=== PATIENT | female | born 1950 | race Caucasian/White ===

== ENCOUNTER → 2023-12-23 11:03 | Outpatient (REF) | payer MEDICARE, SELFPAY ==
[2023-12-23 14:31] LABS: Calcium 9.7 mg/dl (8.4-10.2)
== END ==
LOC: PAVMRI 11:03
PROVIDERS: ATTENDING PHYSICIAN Psychiatry & Neurology Neurology; FAMILY PHYSICIAN Family Medicine
DX: G95.20 Unspecified cord compression (principal); M62.838 Other muscle spasm
CPT/HCPCS: 36415; 72141; 82310; 83735

== ENCOUNTER 2024-05-10 06:12 | Inpatient (IN) | payer MEDICARE, SELFPAY ==
[2024-05-10] VITALS (12 sets, daily range): BP systolic 111–158; BP diastolic 70–94; PULSE 17–120; O2SAT 89–92; BMI 20.3; BMI 19.8
[2024-05-10] MEDS: VENTOLIN NEBULES 7.5 MG INH (01:29)
[2024-05-10 01:43] LABS: % Basophils 0.3 % (0-2); % Eosinophils 1.4 % (0-6); % Immature Granulocytes 0.3 % (0-0.5); % Lymphocytes 23.6 % (20.5-51.1); % Monocytes 9.4 % (1.7-9.3); Absolute Eosinophils 0.1 10^3/uL (0-0.7); Absolute Lymphocytes 1.6 10^3/uL (1.2-3.4); Absolute Monocytes 0.6 10^3/uL (0.1-0.6); Absolute Neutrophils 4.3 10^3/uL (1.4-6.5); Hematocrit 37.4 % (37.0-47.0); Hemoglobin 12.6 g/dL (12.0-16.0); Mean Corp Hgb Conc. 33.7 g/dL (33.0-37.0); Mean Corpuscular Hgb 29.7 pg (27.0-31.0); Mean Corpuscular Volume 88.2 fL (81.0-99.0); Mean Platelet Volume 9.7 fL (7.4-10.4); Nucleated Red Blood Cells % 0 %; Platelet Count 221 10^3/uL (130-400); Red Blood Cell Count 4.24 10^6/uL (4.20-5.40); Red Cell Dist. Width 14.2 % (11.5-14.5); White Blood Cell Count 6.6 10^3/uL (4.8-10.8)
[2024-05-10 01:47] LABS: ALT (SGPT) 18 U/L (0-35); AST (SGOT) 26 U/L (14-36); Albumin 4.6 g/dl (3.5-5.0); Alkaline Phosphatase 86 U/L (38-126); Blood Urea Nitrogen 14 mg/dl (7-17); Calcium 10.1 mg/dl (8.4-10.2); Carbon Dioxide 27 mmol/L (22-30); Chloride 100 mmol/L (98-107); Estimated Creatinine Clearance 69 ml/min; Glucose 107 mg/dl (70-99); Potassium 4.2 mmol/L (3.5-5.1); Sodium 137 mmol/L (135-145); Total Bilirubin 0.7 mg/dl (0.2-1.3); Total Protein 7.1 g/dl (6.3-8.2); eGFR > 60.00
[2024-05-10 01:58] LABS: NT-proBNP 112 pg/ml; Troponin I < 0.012 ng/ml
--- NOTE | 2024-05-10 01:59 | ED.GENMED ---
History of Present Illness
General
Chief Complaint: Breathing Problem
Source: patient, ambulance crew and previous hospital records (Previous hospitalization August 2023. Admitted after suffering a fall, rib fracture, acute on chronic hypoxic respiratory failure.)
Exam Limitations: none
Time Seen by Provider: 05/10/24 01:23
Nursing documentation reviewed up to this point in time: agreed with
History of Present Illness
History of Present Illness:
This is a 73-year-old woman who has history of end-stage COPD, chronically O2 dependent at 4 L, resides at home independently. On palliative care.
She complains of increased shortness of breath over the past several days with a bit of confusion several days ago, she was unable to put her nebulizer tubing together and thus has not given herself nebulizers over the past several days with
resultant increased shortness of breath, increased weakness. She has been unable to make her self meals and has been concerned over the past few days.
She has not had a fever, chronic dry cough, chronic mild lower extremity edema.
She has not suffered any falls but admits to significant generalized weakness more so over the past few days.
She does have a echometer engineer who visits once a week to help with bathing and washing her hair. She canceled her echometer engineer today, Tuesday due to overall not feeling well.
She also has a sister who resides in [place] but admits to neglecting calling her for assistance. With worsening shortness of breath [facility]
Upon [facility] arrival patient found to be in significant respiratory distress, hypoxic with pulse ox of 84% initially. Given DuoNeb nebulizer en route with improvement in pulse ox to 98%.
Mild improvement in shortness of breath after nebulizer. Currently receiving hour-long albuterol nebulizer with significant improvement in shortness of breath, now able to speak in full sentences.
Past History
Past History
ED Past Medical History: COPD (Emphysema), Psychiatric (Anxiety) and Other (Migraines, recurrent UTIs, Subdural hematoma, Hiatal hernia, chronic pain syndrome-narcotic dependent)
ED Past Surgical History: (X 2), Orthopedic (Cervical laminectomy, Bilateral total hip replacements, Left wrist surgery) and Other (Cataracts, Bilateral cosmetic eye surgery)
Patient has exhibited threatening behavior?: No
PSI?: No
Social History
Tobacco: Former smoker (4 cigarettes/day)
Alcohol: None
Drug: None
Personal:
Living: alone
Employment: Not employed
Family History
Family History: Other (Noncontributory)
Phy Exam
Physical Exam
Physical Exam:
GENERAL: 73-year-old moderately frail appearing woman, appears older than stated age. Moderate resting tachypnea but able to speak in full sentences. Hour-long albuterol nebulizer infusing.
EYE: pupils equal and reactive. anicteric
NECK: Supple, nontender, no meningismus, no significant adenopathy.
ENT: posterior pharynx is clear, oral mucosa is mildly dry. TM clear b/l, nares patent.
CARDIAC: Regular rate and rhythm. no murmur.
LUNGS: Moderate resting tachypnea. Markedly decreased breath sounds throughout with expiratory wheezing/fine rales left mid to left upper lobe.
ABDOMEN: Soft, nondistended, without focal tenderness, no r/g, no cvat. normoactive BS.
NEUROLOGICAL: Alert and oriented x3, no focal neuro deficits. Motor strength is 5/5 bilaterally. Gross sensation is intact.
SKIN: Warm and dry, normal color, 1 cm superficial abrasion left anterior lower leg with mild erythema streaking distally from this abrasion anterior lower leg to the anterior ankle. Minimal local tenderness to palpation. No palpable heat.
MUSCULOSKELETAL: No clubbing nor cyanosis. Trace pitting edema right distal lower leg. Peripheral pulses are full and equal b/l. No palpable tenderness.
PSYCH: Normal and appropriate interaction.
Scores
Heart Failure Risk
Heart Failure Risk Score: Yes
History of Stroke or TIA: No
History of intubation for respiratory distress: No
Heart rate on ED arrival >/= 110: Yes
SaO2 <90% on arrival on room air: Yes
HR >/=110 during 3min walk test (or too ill to perform test): Yes
ECG has acute ischemic changes: No
Urea >/=12mmol/L (BUN 33.6mg/dL): No
Serum CO2>/=35mmol/L: No
Troponin I or T elevated to HI Level (0.4mg/dL): No
NT-proBNP >/=5,000ng/L (5,000pg/ml): No
HF Risk Score: 3
Admission Status: HIGH RISK 15.9% Consider SNF treatment or admission to hospital
Course
Orders/Labs/Results
Orders:
Orders
05/10/24 01:19
Electrocardiogram (*1) Urgent
Reason for Study: Other
Other Reason for Exam: Respiratory Distress
Cardiac Monitoring- Treatment ONCE
EKG- Treatment ONCE
IV Insert/Care/Rem.- Treatment PRN
CR Chest Portable - 1 View Urgent
Comment:
Reason For Exam: respiratory distress
Reason Study Needs to be Portable: Patient Unstable
O2 Therapy [RESP] Urgent
Titrate/Wean O2 to maintain O2 sat greater than (%): 93
Special Instructions: TO MAINTAIN CONTINUOUS O2 SATS >/= 93%
Pulse Ox/cont/shift [RESP] Urgent
Quantity: 1
Special Instructions: continuous pulse ox
05/10/24 01:21
Complete Blood Count/With Diff Urgent
Comprehensive Metabolic Panel Urgent
NT-proBNP Urgent
Troponin I Urgent
05/10/24 01:23
Albuterol Sulfate [Ventolin Nebules] 7.5 mg INH R NOW STA
05/10/24 02:54
0.9% Sodium Chloride 1000 ml [Nss] 1,000 ml IV 200 mls/hr
Dexamethasone Sod Phosphate [Decadron] 10 mg IV NOW STA
Abnormal Lab Results
05/10/24
01:21
Monocytes % 9.4 H %
(1.7-9.3)
Creatinine 0.5 L mg/dL
(0.6-1.0)
Glucose 107 H mg/dl
(70-99)
05/10/24 01:21
05/10/24 01:21
Vital Signs
Initial and Last Documented VS:
Initial Vital Signs
Temp Pulse Resp BP Pulse Ox
97.6 F 112 24 128/85 94
05/10/24 01:15 05/10/24 01:15 05/10/24 01:15 05/10/24 01:15 05/10/24 01:15
Last Documented Vital Signs
Temp Pulse Resp BP Pulse Ox
97.6 F 112 24 128/85 94
05/10/24 01:15 05/10/24 01:15 05/10/24 01:15 05/10/24 01:15 05/10/24 01:15
MDM/Problems Addressed
Differential Diagnosis Includes:
Concern for exacerbation COPD, pneumonia, less likely CHF.
With report of poor oral intake over the past 2 to 3 days, concern for acute dehydration, acute kidney injury, electrolyte abnormality.
With acute on chronic hypoxia, concern for coronary ischemia.
Dyspnea has improved with nebulizer treatments.
Chronic conditions affecting care: COPD, Neurological disorder and Immunosuppressed
Acute Exacerbation and/or Progression of Chronic Illness: COPD
*Radiology
Radiology exam reviewed: preliminary read by ED provider (Chest x-ray shows hyperinflation with moderate interstitial lung disease more prominent on the left than the right. Overall similar to previous film.)
*Pulse Oximetry
Patient hypoxic: yes
*EKG
Interpreted by ED Provider?: Yes
Interpretation: abnormal
Comparison EKG: no changes (Unchanged from previous August 2023)
Rate: tachycardiac
Rhythm: sinus
[place]: right axis deviation
Interval: normal interval
QRS Pattern: normal QRS
Ischemia: non-specific ST changes
*Importer Or Exporter Interpretation
Rate: tachycardiac
Interpretation: abnormal
Rhythm: sinus
*Critical Care Note
Total Time (30-74mins, 75-104mins- exclusive of procedures): Not Applicable
ED Attending Note
-
Portions of this chart may have been created with voice recognition software.� Occasional wrong word or��sound alike� substitutions may have occurred due to the inherent limitations of voice recognition software.
Discharge Plan
Departure
Patient Disposition: Admit
Date of Disposition: 05/10/24
Time of Disposition: 02:59
Admit to: Med/Surg
Admit to doctor: Mario
Presentation/result/management discussed w/ accepting MD/DO: Hospitalist
Condition: Fair
Discharge Problem:
Acute exacerbation of chronic obstructive pulmonary disease, Acute and chronic respiratory failure with hypoxia
Prescriptions:
No Action
bupropion HCl 150 MG tablet extended release 24 hr
150 mg PO DAILY
Rx Instructions:
take with 300mg
gabapentin 300 mg Capsule
300 mg PO DAILYPRN PRN (Reason: breakthrough pain)
omeprazole 40 mg capsule,delayed release(DR/EC)
40 mg PO DAILY
gabapentin 300 mg Capsule
1,200 mg PO QPM
bupropion HCl [Wellbutrin XL] 300 mg Tablet Extended Release 24 Hr
300 mg PO DAILY
Rx Instructions:
take with 150mg
Visbiome 112.5 billion cell Capsule
1 cap PO DAILY
budesonide 0.25 MG/2 ML suspension for nebulization
0.25 mg inhalation R BID
ipratropium-albuterol 0.5 mg-3 mg(2.5 mg base)/3 mL Solution For Nebulization
3 ml INHALATION R Q8HPRN PRN (Reason: sob)
azithromycin 250 mg Tablet
250 mg PO MOWEFR
Patient Comments:
08/31/23 filled on 05/16/23 #36
phenazopyridine 200 mg Tablet
200 mg PO TIDPRN PRN (Reason: uti)
diphenoxylate-atropine 2.5-0.025 mg Tablet
1 tab PO DAILYPRN PRN (Reason: diarrhea)
Patient Comments:
08/31/23 filled on 08/12/23 #90
methenamine hippurate 1 gram Tablet
1 g PO DAILYPRN PRN (Reason: uti)
ibuprofen [Advil] 200 mg Tablet
400 mg PO DAILYPRN PRN (Reason: mild pain)
memantine 10 mg Tablet
10 mg PO DAILY
lidocaine 4 % Adhesive Patch,Medicated
1 patch topical DAILY Qty: 10 0RF
ciprofloxacin HCl 250 mg Tablet
250 mg PO BID Qty: 8 0RF
Rx Instructions:
Take for another 4 days
tramadol 50 mg Tablet
25 mg PO Q6HPRN PRN (Reason: severe pain) Qty: 20 0RF
lorazepam [Ativan] 0.5 MG tablet
0.5 mg PO TIDPRN PRN (Reason: anxiety) 5 Days Qty: 15 0RF
Patient Comments:
08/31/23 filled on 08/08/23 #90
Interventions
Interventions:
*Risk Screen - Suicide Last Done: 05/10/24 01:15
*General Assessment Last Done: 05/10/24 01:15
*Neglect/Abuse Screening Last Done: 05/10/24 01:15
*ED COVID-19 Vaccine History Last Done: 05/10/24 01:15
Discharge Date and Time
Print Language: PASHTO
[2024-05-10] MEDS: NSS 1000 IV (03:16)
[2024-05-10] MEDS: DECADRON 10 MG IV (03:16)
[2024-05-10] MEDS: TYLENOL 650 MG PO ×2 (03:22→08:37)
--- NOTE | 2024-05-10 03:23 | EDRN ---
Patient complaining of a headache medicated for pain with tylenol per
--- NOTE | 2024-05-10 04:20 | EDRN ---
Dr. Martin at bedside working on admission
--- NOTE | 2024-05-10 04:40 | HPS.HSE ---
Family Physician
-
Family Physician: Yo Lugo
Chief Complaint
-
SOB
History of Present Illness
Patient is a 73y F with PMH significant for severe COPD on chronic home O2 who presents to ED complaining of SOB. Patient states that she has been progressively more short of breath over the past 4-5 days. Patient notes that she has been
sleeping poorly and has been very tired as a result. She stopped using her typical breathing treatments / nebulizers due to feeling too tired to do so. Her breathing gradually became worse and worse. Over the past 2 days, patient states that she
has experienced air hunger. She has home health aides; however, she advised them not to come in b/c she was feeling poorly. Her sister offered to come and see her but patient declined this as well.
This evening she was severely short of breath and decided to call for help.
EMS brought patient to the ED where she was noted to be in moderate respiratory distress with significantly decreased breath sounds.
She has improved somewhat s/p neb treatment and steroids here in the ED.
Patient is on Palliative Care at home (Dr. Meyer) and takes oxycodone as needed for air hunger. She has taken this a few times over the past few days with only minimal / temporary improvement.
Medical History
Past Medical History
Past Medical History: Reports Other
Additional Past Medical History:
COPD
Chronic Hypoxic Respiratory Insufficiency
Peripheral Neuropathy
Anxiety
GERD
Migraine Headache
Hx Recurrent UTIs
Past Surgical History: Reports Other
Additional Past Surgical History:
Posterior Cervical Laminectomy
Bilateral Total Hip Replacements
Left Wrist Surgery
Cataracts
Bilateral Eyelid Surgery
Social History
Tobacco: Former Smoker
Alcohol: Occasional
Living: Alone
Family History
Family History: Other (Father with COPD)
Allergies / Home Medications
Allergies reflects when Allergies were last updated in [facility].
Home Medications with original date entered in [facility]
Allergy/Medication List:
Patient cannot recall all current meds / doses. Will need formal reconciliation in the AM.
If medication reconciliation has not been performed, why?: Medication List N/A
Review of Systems
-
History Source: Patient
A 12 point ROS was completed and negative except as noted: Yes
Constitutional: Reports Fatigue; Denies Fever or Chills
EENT: Denies Sore Throat
Respiratory: Reports Trouble Breathing; Denies Cough or Hemoptysis
Cardiac: Denies Chest Pain, Diaphoresis, Palpitations or Syncope
Abdomen/GI: Denies Abdominal Pain, Nausea or Vomiting
: Denies Dysuria or Frequency
Musculoskeletal: Denies Joint Pain or Edema
Neurological: Reports Headache; Denies Dizzy
Psych: Reports Depression and Anxiety
Physical Exam
Vital Signs
Vital Signs
Temp Pulse Resp BP Pulse Ox
97.6 F 107 17 113/70 97
05/10/24 01:15 05/10/24 04:15 05/10/24 04:15 05/10/24 04:00 05/10/24 04:15
Physical Exam
General: Other (Frail 73y F in mild distress due to dyspnea.)
HEENT: Moist mucous membranes, PERRLA and Other (Neck supple.)
Respiratory: Other (Decreased breath sounds throughout with diffuse end-expiratory wheeze.)
Cardiac: S1/S2 and Tachycardia; No Murmur
GI: Soft, Non Tender, Non Distended and Normal Bowel Sounds
Musculoskeletal: No Clubbing, No Cyanosis and Other (Trace edema of the R ankle.)
Neuro: AO x 3
Laboratory Results
-
05/10/24 01:21
05/10/24 01:21
Laboratory Results
Total Bilirubin 0.7 mg/dl (0.2-1.3) 05/10/24 01:21
AST 26 U/L (14-36) 05/10/24 01:21
ALT 18 U/L (0-35) 05/10/24 01:21
Alkaline Phosphatase 86 U/L (38-126) 05/10/24 01:21
Troponin I < 0.012 ng/ml 05/10/24 01:21
Impression/Plan
-
A/P: Patient is a 73y F with PMH significant for COPD and chronic hypoxemia who presents to ED complaining of SOB.
COPD with Acute Exacerbation
Chronic Hypoxemic Respiratory Failure
- Admit for further evaluation and treatment.
- Exacerbation likely in part due to lack of medications for the past few days.
- IV steroids, nebs ATC and PRN.
- Follow for clinical improvement.
- Continue usual thrice weekly azithromycin.
- Consider Pulmonary evaluation if no improvement.
Peripheral Neuropathy
- Stable. Continue gabapentin (patient does recall name / dose of this medication).
Anxiety / Depression
- Reconcile home meds and resume if appropriate.
- Continue PRN BZDs for now.
Palliative Care
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
- Given issues over the past few days - ? if she would benefit from placement / assisted living / etc?
- Morphine as needed for pain / anxiety / air hunger.
DVT Prophylaxis: Lovenox
Code Status: DNR
[2024-05-10] MEDS: DUONEB 3 ML INH ×4 (07:42→20:08)
[2024-05-10] MEDS: PULMICORT 0.25 MG INH ×2 (07:42→20:08)
[2024-05-10] MEDS: MORPHINE SULFATE 2 MG IV ×2 (08:35→23:19)
[2024-05-10] MEDS: NAMENDA 10 MG PO (08:36)
[2024-05-10] MEDS: PROTONIX 40 MG PO (08:36)
[2024-05-10] MEDS: NEURONTIN 600 MG PO ×3 (08:36→22:20)
--- NOTE | 2024-05-10 09:10 | PTCARENOTE ---
Air hunger noted, resp rate 36 breaths/minute, accessory muscle use noted. SaO2 >91% on 4L. Medicated w/ PRN morphine. Plan of care ongoing.
--- NOTE | 2024-05-10 12:13 | W.PN.HOSP.TC ---
Today's Communication/Plan
-
Monitor vital signs and see plan
Continue with IV steroids, nebs
Pulmonary to see
Nonbillable note
Assessment / Plan
Assessment / Plan
General: Other (Frail 73y F in mild distress due to dyspnea.)
HEENT: Moist mucous membranes, PERRLA and Other (Neck supple.)
Respiratory: Other (Decreased breath sounds throughout with diffuse end-expiratory wheeze.)
Cardiac: S1/S2 and Tachycardia; No Murmur
GI: Soft, Non Tender, Non Distended and Normal Bowel Sounds
Musculoskeletal: No Clubbing, No Cyanosis and Other (Trace edema of the R ankle.)
Neuro: AO x 3
COPD with Acute Exacerbation
Chronic Hypoxemic Respiratory Failure on 4.5 L at home
- Exacerbation likely in part due to lack of medications for the past few days.
- IV steroids, nebs ATC and PRN.
- Follow for clinical improvement.
- Continue usual thrice weekly azithromycin.
Pulmonary evaluation
Peripheral Neuropathy
- Stable. Continue gabapentin (patient does recall name / dose of this medication).
Anxiety / Depression
- Reconcile home meds and resume if appropriate.
- Continue PRN BZDs for now.
Palliative Care
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
- Given issues over the past few days - ? if she would benefit from placement / assisted living / etc?
- Morphine as needed for pain / anxiety / air hunger.
DVT Prophylaxis: Lovenox
Code Status: DNR
Anticipated Discharge: 24 - 48 hours
Subjective/Interval History
-
Date of Service: May 10, 2024
denies pain
Objective Data
-
Labs:
Laboratory Results
05/10/24
01:21
WBC 6.6
Hgb 12.6
Hct 37.4
Plt Count 221
Sodium 137
Potassium 4.2
Chloride 100
Carbon Dioxide 27
BUN 14
Creatinine 0.5 L
Glucose 107 H
Calcium 10.1
Total Bilirubin 0.7
AST 26
ALT 18
Alkaline Phosphatase 86
Vital Signs:
Vital Signs
Temp Pulse Resp BP Pulse Ox
98.1 F 99 16 111/72 98
05/10/24 08:30 05/10/24 11:24 05/10/24 11:24 05/10/24 07:00 05/10/24 11:24
[2024-05-10] MEDS: DECADRON 4 MG IV ×2 (13:40→20:29)
[2024-05-10 14:05] LABS: Urine Albumin Negative (Neg - Trace); Urine Bilirubin Negative (Negative); Urine Character Clear (Clear); Urine Color Yellow; Urine Glucose Negative (Negative); Urine Ketone 2+ (Negative); Urine Leukocyte 1+ (Negative); Urine Nitrite Positive (Negative); Urine Occult Blood Negative (Negative); Urine Specific Gravity 1.015 (<1.030); Urine Urobilinogen Negative (Neg - 1+)
[2024-05-10 14:23] LABS: Urine Bacteria Many (Negative); Urine Red Blood Cell 0-2 /HPF (0-2)
--- NOTE | 2024-05-10 15:25 | PTCARENOTE ---
05/10- Patient transferred and oriented to unit without issue. AAOX3 but anxious. Patient is able to ambulate with walker with one-person assist to bathroom. Is continent of both bowel/bladder. Patient is 96% on 4L O2. Patient denies any current
needs.
[2024-05-10] MEDS: STERILE WATER FOR INJECTION 10 ML IV ×2 (15:35→22:20)
[2024-05-10] MEDS: MAXIPIME 1000 MG IV ×2 (15:35→22:20)
[2024-05-10] MEDS: LOVENOX 40 MG SC (15:58)
--- NOTE | 2024-05-10 16:10 | CON.PUL ---
Consultation
Consultation Request
Date/Time Consultation Requested: 05/10/2024
Date/Time Consultation Performed: 05/10/2024
Requesting Provider: Dr. Magaña
Performing Provider: Dr. Nikita Harris
Reason for Consultation: Acute exacerbation of COPD
Medical History
-
History of Present Illness:
73-year-old woman known to me from the office, has advanced COPD with chronic hypoxemic respiratory failure. She is a former smoker. Currently on 5 L of supplemental oxygen. Frequent exacerbator..
Debilitated, with history of anxiety as well.
Last time admitted to the hospital 09/08/2023.
Returns to the hospital on 05/10/2024With progressive short of breath over the past 4 to 5 days. Reports poor sleep quality the last several days. Feels very tired.
She was advised to come to the emergency room for evaluation. Shortness of breath was significant at rest what prompted her to come to the emergency room.
Steroids and nebulizer were started.
Patient is on palliative care with Dr. Meyer. Now on oxycodone for air hunger.
Past Medical History
Past Medical History: Other (See assessment and plan section)
Social History
Tobacco: Smoker (4 cigarettes/day)
Alcohol: Occasional
Drug: None
Personal: Single
Employment: Retired
Family History
Family History: Reviewed & Not Pertinent
Allergies / Home Medications
Allergies
Allergy/AdvReac Type Severity Reaction Status Date / Time
No Known Allergies Allergy Verified 05/10/24 01:21
Home Medications
�Medication �Instructions �Recorded �Confirmed �Last Taken �Type
bupropion HCl 150 mg 24 hr tablet, 450 mg PO DAILY Mental 09/14/21 05/10/24 08/30/23 History
extended release Health/Anxiety
omeprazole 40 mg capsule,delayed 40 mg PO DAILY Gastrointestinal 09/10/22 05/10/24 08/30/23 History
release issue
budesonide 0.25 mg/2 mL suspension 0.25 mg inhalation R DAILY 10/01/22 05/10/24 08/30/23 History
for nebulization Lung/breathing issues
azithromycin 250 mg tablet 250 mg PO MOWEFR Infection 08/31/23 05/10/24 08/29/23 History
diphenoxylate-atropine 2.5 1 tab PO DAILYPRN PRN diarrhea 08/31/23 05/10/24 08/31/23 History
mg-0.025 mg tablet
ipratropium 0.5 mg-albuterol 3 mg 3 ml inhalation R Q8HPRN PRN sob 08/31/23 05/10/24 08/30/23 History
(2.5 mg base)/3 mL nebulization
soln
methenamine hippurate 1 gram tablet 1 g PO DAILYPRN PRN uti 08/31/23 05/10/24 Unknown History
phenazopyridine 200 mg tablet 200 mg PO TIDPRN PRN uti 08/31/23 05/10/24 08/30/23 History
lorazepam 0.5 mg tablet (Ativan) 0.5 mg PO TIDPRN PRN anxiety 5 09/08/23 05/10/24 08/30/23 Rx
days #15 tabs
aripiprazole 5 mg tablet (Abilify) 5 mg PO DAILY Mental Health 05/10/24 05/10/24 Unknown History
jhdjebneuw-imweqirjukpji-moqsqzmy 1 cap PO Q6HPRN PRN mirgraines 05/10/24 05/10/24 Unknown History
50 mg-325 mg-40 mg capsule
gabapentin 300 mg capsule 300 mg PO BID Neurological 05/10/24 Unknown History
Condition
oxycodone 5 mg tablet 5 mg PO BIDPRN PRN sevre pain 05/10/24 05/10/24 Unknown History
Review of Systems
-
History Source: Patient
All other systems: Negative unless noted
Vitals / Labs / Diagnostic Testing
Vital Signs
Temp Pulse Resp BP Pulse Ox
98.8 F 101 20 129/79 93
05/10/24 15:15 05/10/24 15:52 05/10/24 15:52 05/10/24 15:15 05/10/24 15:52
Lab Data
05/10/24 01:21
05/10/24 01:21
Diagnostic Testing:
Physical Exam
-
HEENT: Normocephalic
Cardiovascular: S1/S2
Respiratory: Other (Prolonged expiratory phase)
GI: Soft and Non Distended
Neurology: Awake, Alert, Oriented and AO x 3
Skin: Warm and Other (Cachectic)
General: Respiratory Distress (At rest)
Assessment
-
73-year-old woman with advanced COPD, minimal effort dyspnea at baseline, anxiety, on maximal medical therapy, now on narcotics for air hunger and palliative care. Comes to the hospital 05/10/2024 with worsening shortness of breath over the last 4 to
5 days. Worsening in the last 24 hours with minimal effort. Unrelieved by nebulizers. We were consulted on 05/10/2024 for evaluation.
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
Last discharged from the hospital 09/2023. Not on palliative care
Hospital admission-acute exacerbation of COPD 07/2022.
COPD/emphysema, history of frequent exacerbations/chronic prednisone use
Follows with Dr Harris, last seen 02/03/22
On budesonide and DuoNebs
Chronic O2 use 3L
Last PFT 2018- FEV1 0.97L 41%, DLCO 7%-- no further tests are attempted as she cannot perform them
RUL spiculated nodule--discussed with patient/daughter, no further w/u as she would not be amenable for treatment
Hx of Falls
Chronic alcohol abuse
Polycythemia
Chronic gastritis/NSAID use
Kyphoscoliosis�
Idiopathic progressive polyneuropathy
Current moderate episode of major depressive disorder without prior episode
Diverticulosis
Chronic diarrhea with hypokalemia
Former smoker
Assessment and plan:
Patient well-known to me from the outpatient, advanced COPD with chronic shortness of breath despite maximal medical therapy.
Worsening symptoms over the last 4 to 5 days. 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
Her oxygenation is at baseline.
Poor air movement at baseline as well.
So far no evidence for infection.
Chest x-ray reviewed showed no acute infiltrates.
D-dimer and proBNP normal. Laboratory testing all normal.
-
Unfortunately, there are a few options for this patient. She has been on maximal medical therapy.
She is cachectic at baseline and deconditioned.
Has been on maximal medical therapy DuoNebs/Pulmicort/steroids added low-dose intermittently/chronic macrolide therapy.
For now I agree with IV corticosteroids
Restart nebulizers
No indication for antibiotics to treat infection. She is chronically on low-dose azithromycin, continue for now.
I agree with narcotics for dyspnea sensation. She is on Palliative care with Dr. Meyer.
She is SOB at rest with conversation.
Discussed with pt, will add morphine IV 0.5 IV PRN for dyspnea, she was agreeable to this.
-
In the past we have discussed noninvasive mechanical ventilation but she is not interested.
There is no evidence for metabolic alkalosis on BMP. Less likely chronic hypercapnia.
-
Suggest prolonged prednisone taper and assess whether this patient would benefit from that in the outpatient setting.
-
If there is no improvement, no acute reason for decompensation, additional goals of cares may need to be discussed.
Will be an ongoing discussion on a day by day basis.
-
Will follow
[2024-05-10] MEDS: ATIVAN 0.5 MG PO (23:58)
[2024-05-11 03:29] VITALS: BP 118/68
[2024-05-11] MEDS: DECADRON 4 MG IV ×3 (04:22→20:03)
[2024-05-11 07:00] VITALS: BP 100/63; BP 121/74; BP 123/81; PULSE 101; PULSE 104; PULSE 96
[2024-05-11] MEDS: ZITHROMAX 250 MG PO (07:26)
[2024-05-11] MEDS: NEURONTIN 600 MG PO ×3 (07:26→21:16)
[2024-05-11] MEDS: NAMENDA 10 MG PO (07:26)
[2024-05-11] MEDS: PROTONIX 40 MG PO (07:26)
[2024-05-11] MEDS: STERILE WATER FOR INJECTION 10 ML IV ×2 (07:27→20:04)
[2024-05-11] MEDS: MAXIPIME 1000 MG IV ×2 (07:27→20:04)
[2024-05-11] MEDS: DUONEB 3 ML INH ×4 (08:08→20:53)
[2024-05-11] MEDS: PULMICORT 0.25 MG INH ×2 (08:08→20:54)
[2024-05-11 08:42] LABS: % Immature Granulocytes 0.3 % (0-0.5); % Lymphocytes 6.8 % (20.5-51.1); % Neutrophils 88.9 % (42.2-75.2); Absolute Lymphocytes 0.4 10^3/uL (1.2-3.4); Absolute Monocytes 0.2 10^3/uL (0.1-0.6); Absolute Neutrophils 5.1 10^3/uL (1.4-6.5); Hemoglobin 11.6 g/dL (12.0-16.0); Mean Corp Hgb Conc. 34.1 g/dL (33.0-37.0); Mean Corpuscular Volume 90.9 fL (81.0-99.0); Mean Platelet Volume 9.9 fL (7.4-10.4); Nucleated Red Blood Cells % 0 %; Platelet Count 217 10^3/uL (130-400); Red Blood Cell Count 3.74 10^6/uL (4.20-5.40); Red Cell Dist. Width 14.3 % (11.5-14.5); White Blood Cell Count 5.7 10^3/uL (4.8-10.8)
[2024-05-11 08:58] LABS: Blood Urea Nitrogen 20 mg/dl (7-17); Carbon Dioxide 29 mmol/L (22-30); Chloride 101 mmol/L (98-107); Estimated Creatinine Clearance 57 ml/min; Potassium 4.5 mmol/L (3.5-5.1); Sodium 135 mmol/L (135-145); eGFR > 60.00
[2024-05-11] MEDS: ATIVAN 0.5 MG PO ×3 (09:11→21:16)
[2024-05-11] MEDS: TYLENOL 650 MG PO (09:11)
[2024-05-11 09:28] LABS: Calcium 9.8 mg/dl (8.4-10.2); Glucose 115 mg/dl (70-99)
[2024-05-11] MEDS: WELLBUTRIN XL (24 hour extended release) 450 MG PO (09:59)
[2024-05-11] MEDS: ABILIFY 5 MG PO (10:00)
--- NOTE | 2024-05-11 11:07 | W.PN.PUL3 ---
Today's Communication / Plan
-
Morphine PRN helpful, continue for now
Will start to wean IV steroids
She remains on 5L NC/this is her baseline use
Encouraged OOB/IS
Pall care was discussed, she is enrolled as OP
She is DNR, if she were to decompensate would discuss comfort measures
Assessment
-
73-year-old woman with advanced COPD, minimal effort dyspnea at baseline, anxiety, on maximal medical therapy, now on narcotics for air hunger and palliative care. Comes to the hospital 05/10/2024 with worsening shortness of breath over the last 4 to
5 days. Worsening in the last 24 hours with minimal effort. Unrelieved by nebulizers. We were consulted on 05/10/2024 for evaluation.
Acute on chronic SOB
AECOPD
FTT
Pulmonary cachexia
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
Last discharged from the hospital 09/2023. Not on palliative care
Hospital admission-acute exacerbation of COPD 07/2022.
COPD/emphysema, history of frequent exacerbations/chronic prednisone use
Follows with Dr Harris, last seen 02/03/22
On budesonide and DuoNebs
Chronic O2 use 3L
Last PFT 2018- FEV1 0.97L 41%, DLCO 7%-- no further tests are attempted as she cannot perform them
RUL spiculated nodule--discussed with patient/daughter, no further w/u as she would not be amenable for treatment
Hx of Falls
Chronic alcohol abuse
Polycythemia
Chronic gastritis/NSAID use
Kyphoscoliosis�
Idiopathic progressive polyneuropathy
Current moderate episode of major depressive disorder without prior episode
Diverticulosis
Chronic diarrhea with hypokalemia
Former smoker
Assessment and plan:
Patient well-known to me from the outpatient, advanced COPD with chronic shortness of breath despite maximal medical therapy.
Worsening symptoms over the last 4 to 5 days. 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
Her oxygenation is at baseline. She remains on 5L NC
Poor air movement at baseline as well.
So far no evidence for infection.
Chest x-ray reviewed showed no acute infiltrates.
D-dimer and proBNP normal. Laboratory testing all normal.
Unfortunately, there are a few options for this patient. She has been on maximal medical therapy.
She is cachectic at baseline and deconditioned.
Has been on maximal medical therapy DuoNebs/Pulmicort/steroids added low-dose intermittently/chronic macrolide therapy.
For now I agree with IV corticosteroids, can start to wean today
Restart nebulizers
No indication for antibiotics to treat infection. She is chronically on low-dose azithromycin, continue for now.
I agree with narcotics for dyspnea sensation. She is on Palliative care with Dr. Meyer.
She is SOB at rest with conversation.
Continue morphine IV 0.5 IV PRN for dyspnea, she does find this helpful
-
In the past we have discussed noninvasive mechanical ventilation but she is not interested.
There is no evidence for metabolic alkalosis on BMP. Less likely chronic hypercapnia.
-
Suggest prolonged prednisone taper and assess whether this patient would benefit from that in the outpatient setting.
-
If there is no improvement, no acute reason for decompensation, additional goals of cares may need to be discussed.
Will be an ongoing discussion on a day by day basis.
-
Outpatient FU recommended
Subjective Data
-
Date of Service:
Date of Service: May 11, 2024
Chief Complaint: Pulmonary Follow Up
Subjective:
No new events ON
Feels better with IV morphine
Remains on 5L NC
Objective Data
Data Reviewed
Vital Signs / I&O / Oxygen:
Vital Signs
Temp Pulse Resp BP Pulse Ox
98.0 F 92 16 100/63 94
05/11/24 07:00 05/11/24 08:09 05/11/24 08:09 05/11/24 07:00 05/11/24 09:45
Intake and Output
05/10/24 05/11/24 05/12/24
06:59 06:59 06:59
Intake Total 780 / 780
Balance 780 / 780
SaO2 94
Nasal Cannula flow liters per 5
minute
Physical Exam
General: Respiratory Distress (mild, dyspneic with conversation) and Other (otherwise, no acute distress)
HEENT: Normocephalic, Anicteric and Moist Mucous Membranes
Cardiovascular: S1-S2 and Regular Rhythm
Respiratory: Clear (overall significantly decreased breath sounds) and Non-Labored Respirations
GI: Soft, Non Distended and Non Tender
Neurology: Awake, Alert, Oriented, AO x 3 and No Motor Deficits
Skin: Warm, Dry and Good Color
Labs/Micro/Reports
Lab Data
05/11/24 08:24
05/11/24 08:24
Microbiology
05/10/24 13:40 Urine Urine Culture - Preliminary
Gram negative bacilli
[2024-05-11 11:14] VITALS: BP 102/64
--- NOTE | 2024-05-11 12:50 | W.PN.HOSP.TC ---
Today's Communication/Plan
-
Monitor vital signs see plan
Continue with IV steroids
Continue antibiotics
cw anxiolytics
Assessment / Plan
Assessment / Plan
General: Other (Frail 73y F in mild distress due to dyspnea.)
HEENT: Moist mucous membranes, PERRLA and Other (Neck supple.)
Respiratory: Other (Decreased breath sounds throughout with diffuse end-expiratory wheeze.)
Cardiac: S1/S2 and Tachycardia; No Murmur
GI: Soft, Non Tender, Non Distended and Normal Bowel Sounds
Musculoskeletal: No Clubbing, No Cyanosis and Other (Trace edema of the R ankle.)
Neuro: AO x 3
COPD with Acute Exacerbation
Chronic Hypoxemic Respiratory Failure on 4.5 L at home
- Exacerbation likely in part due to lack of medications for the past few days.
- IV steroids, nebs ATC and PRN.
- Follow for clinical improvement.
- Continue usual thrice weekly azithromycin.
Pulmonary following
Symptomatic UTI
Follow urine culture
History of Pseudomonas
Continue cefepime
Peripheral Neuropathy
- Stable. Continue gabapentin (patient does recall name / dose of this medication).
Anxiety / Depression
cw Wellbutrin,abilify
- Continue PRN BZDs for now.
Palliative Care
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
- Given issues over the past few days - ? if she would benefit from placement / assisted living / etc?
- Morphine as needed for pain / anxiety / air hunger.
DVT Prophylaxis: Lovenox
Code Status: DNR
Anticipated Discharge: > 48 hours
Subjective/Interval History
-
Date of Service: May 11, 2024
Anxious this morning
Objective Data
-
Labs:
Laboratory Results
05/11/24
08:24
WBC 5.7
Hgb 11.6 L
Hct 34.0 L
Plt Count 217
Sodium 135
Potassium 4.5
Chloride 101
Carbon Dioxide 29
BUN 20 H
Creatinine 0.7
Glucose 115 H
Calcium 9.8
Vital Signs:
Vital Signs
Temp Pulse Resp BP Pulse Ox
98.1 F 88 18 102/64 92
05/11/24 11:14 05/11/24 11:14 05/11/24 11:14 05/11/24 11:14 05/11/24 11:14
I&O
05/10/24 05/11/24 05/12/24
06:59 06:59 06:59
Intake Total 780 / 780
Balance 780 / 780
--- NOTE | 2024-05-11 14:55 | CM ---
Patient seen bedside, initial assessment completed. Patient resides independently in a apartment, elevator access. Patient has a walker for inside the home, rollator for outside of home. Patient reports she is current with [facility] care, [facility] Patient is on home O2, typically 4.5L, through [employer]. Patient has a home health aide every Tuesday for 4 hours. Patient reports she has been to SNF in the past, is not agreeable to go to SNF. CM discussed PT/OT
recommendations, patient would like to return home with home PT services, [facility]. Patient PCP Dr. Gonzalez, pharmacy [facility]. CM will continue to follow for all discharge planning needs.
Plan; home with home health aid, VN, and [facility] care, patient not agreeable to SNF at this time.
[2024-05-11 15:00] VITALS: BP 108/66
[2024-05-11] MEDS: LOVENOX 40 MG SC (16:08)
--- NOTE | 2024-05-11 16:16 | VNURNOTE ---
Home Health Liaison met with patient at bedside to discuss [facility] nurse/therapy, visits, schedule and homebound status. Patient is agreeable and understands that visits at home will be 2-3 x per week to assess and teach medical management. She has
had [facility] services in the past. [facility] brochure provided with contact information. Patient is aware that [facility] will contact them for start of care within a few days after discharge from . Patient declined [facility] stating she has a CG once/week who helps
her w/bathing. She is current w/[facility] as well. [facility] referral completed in [facility].
[2024-05-11 19:29] VITALS: BP 100/64
[2024-05-11 23:26] VITALS: BP 108/69; BP 110/70; PULSE 102; PULSE 93; PULSE 95
[2024-05-12] VITALS (8 sets, daily range): BP systolic 108–120; BP diastolic 56–77; PULSE 99–109; O2SAT 99
[2024-05-12] MEDS: WELLBUTRIN XL (24 hour extended release) 450 MG PO (07:22)
[2024-05-12] MEDS: DUONEB 3 ML INH ×4 (07:22→20:15)
[2024-05-12] MEDS: PULMICORT 0.25 MG INH (07:22)
[2024-05-12] MEDS: NAMENDA 10 MG PO (07:23)
[2024-05-12] MEDS: NEURONTIN 600 MG PO ×3 (07:23→21:36)
[2024-05-12] MEDS: PROTONIX 40 MG PO (07:23)
[2024-05-12] MEDS: ATIVAN 0.5 MG PO ×3 (07:23→20:40)
[2024-05-12] MEDS: DECADRON 4 MG IV ×2 (07:24→19:39)
[2024-05-12] MEDS: ABILIFY 5 MG PO (07:24)
[2024-05-12] MEDS: STERILE WATER FOR INJECTION 10 ML IV (07:25)
[2024-05-12] MEDS: MAXIPIME 1000 MG IV (07:25)
--- NOTE | 2024-05-12 10:35 | W.PN.PUL3 ---
Today's Communication / Plan
-
Morphine PRN helpful, continue for now
Continue IV steroids
She remains on 4-5L NC/this is her baseline use
Encouraged OOB/IS
Check morning VBG to assess for chronic hypercapnia
Pall care was discussed, she is enrolled as OP
She is DNR, if she were to decompensate would discuss comfort measures
Assessment
-
73-year-old woman with advanced COPD, minimal effort dyspnea at baseline, anxiety, on maximal medical therapy, now on narcotics for air hunger and palliative care. Comes to the hospital 05/10/2024 with worsening shortness of breath over the last 4 to
5 days. Worsening in the last 24 hours with minimal effort. Unrelieved by nebulizers. We were consulted on 05/10/2024 for evaluation.
Impression:
Acute on chronic SOB
AECOPD
FTT
Pulmonary cachexia
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
Last discharged from the hospital 09/2023. Not on palliative care
Hospital admission-acute exacerbation of COPD 07/2022.
COPD/emphysema, history of frequent exacerbations/chronic prednisone use
Follows with Dr Harris, last seen 02/03/22
On budesonide and DuoNebs
Chronic O2 use 3L
Last PFT 2018- FEV1 0.97L 41%, DLCO 7%-- no further tests are attempted as she cannot perform them
RUL spiculated nodule--discussed with patient/daughter, no further w/u as she would not be amenable for treatment
Hx of Falls
Chronic alcohol abuse
Polycythemia
Chronic gastritis/NSAID use
Kyphoscoliosis�
Idiopathic progressive polyneuropathy
Current moderate episode of major depressive disorder without prior episode
Diverticulosis
Chronic diarrhea with hypokalemia
Former smoker
Assessment and plan:
Patient well-known to us from [facility] office, follows with Dr. Harris - has advanced COPD with chronic shortness of breath despite maximal medical therapy.
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
Her oxygenation is at baseline. She remains on 4-5L NC
Poor air movement at baseline as well.
So far no evidence for pulmonary infection.
Chest x-ray reviewed showed no acute infiltrates.
D-dimer and proBNP normal. Laboratory testing all normal.
She is on antibiotics for Klebsiella aerogenes seen on urine culture from 05/10/2024 � continue with cefepime and will administer 5-7 days of antibiotics assuming she continues to improve and remains afebrile for 2 days prior to stopping antibiotics
Unfortunately, there are a few options for this patient from pulmonary perspective. She has been on maximal medical therapy.
She is cachectic at baseline and deconditioned.
Has been on maximal medical therapy DuoNebs/Pulmicort/steroids added low-dose intermittently/chronic macrolide therapy.
For now I agree with IV corticosteroids --> can wean over next 1-2 dayd to prednisone starting at 50mg and reduce slowly by dropping 10mg every 5th day until at 5mg daily that she should continue chronically
Continue DuoNebs QID + budesonide BID --> raise dose to 0.5mg from 0.25
No indication for antibiotics to treat lung infection. She is chronically on low-dose azithromycin, continue for now.
I agree with narcotics for dyspnea sensation. She is on Palliative care with Dr. Meyer.
She is SOB at rest with conversation.
Continue morphine IV 0.5 IV PRN for dyspnea, she does find this helpful
-
In the past we have discussed noninvasive mechanical ventilation but she is not interested.
There is no evidence for metabolic alkalosis on BMP. Less likely chronic hypercapnia, however serum HCO3 is 29 from 05/11/2024 --> check VBG tomorrow AM to assess pH and pCO2
-
If there is no improvement, no acute reason for decompensation, additional goals of cares may need to be discussed.
Will be an ongoing discussion on a day by day basis.
-
Outpatient FU recommended
Pulmonary service will continue to follow
Total time spent today was 35 minutes for this encounter. Time includes reviewing laboratory test/imaging results, reviewing pertinent medical records, obtaining and reviewing medical history, performing an appropriate exam, ordering medications,
tests and procedures. Time also includes documentation of this encounter, coordinating patient care and communicating with other healthcare professionals. Total time does not include separately billed tests performed on this date of service.
Subjective Data
-
Date of Service:
Date of Service: May 12, 2024
Chief Complaint: Pulmonary Follow Up and Dyspnea Follow Up
Subjective:
Seen and evaluated at bedside. Currently on 4 L/min nasal cannula and she says she feels better today. Had feet cramping overnight. Denies chest pain, headache, abdominal pain, fevers or chills.
Review of Systems
General: Other (Negative unless mentioned above)
Objective Data
Data Reviewed
Vital Signs / I&O / Oxygen:
Vital Signs
Temp Pulse Resp BP Pulse Ox
97.6 F 90 15 109/62 96
05/12/24 07:00 05/12/24 07:24 05/12/24 07:24 05/12/24 07:00 05/12/24 07:25
Intake and Output
05/11/24 05/12/24 05/13/24
06:59 06:59 06:59
Intake Total 780 / 780 480 / 480
Balance 780 / 780 480 / 480
SaO2 96
Nasal Cannula flow liters per 4
minute
Physical Exam
General: Respiratory Distress (mild, dyspneic with conversation) and Other (otherwise, no acute distress)
HEENT: Normocephalic, Anicteric and Moist Mucous Membranes
Cardiovascular: S1-S2 and Other (Distant cardiac sounds)
Respiratory: Clear, Wheeze (Negative), Crackles (Negative), Rhonchi (Negative), Non-Labored Respirations and Other (significantly decreased breath sounds)
GI: Soft, Non Distended and Non Tender
Neurology: AO x 3 and Tremors (negative)
Skin: Warm, Dry and Jaundice (negative)
Labs/Micro/Reports
Lab Data
05/11/24 08:24
Microbiology
05/10/24 13:40 Urine Urine Culture - Final
Klebsiella aerogenes
--- NOTE | 2024-05-12 11:39 | W.PN.HOSP.TC ---
Today's Communication/Plan
-
Monitor vital signs
see plan
Continue with Decadron, nebs
Change antibiotics to Cipro
cw o2
anxiolytics
Assessment / Plan
Assessment / Plan
General: Other (Frail 73y F in mild distress due to dyspnea.)
HEENT: Moist mucous membranes, PERRLA and Other (Neck supple.)
Respiratory: Other (Decreased breath sounds throughout with diffuse end-expiratory wheeze.)
Cardiac: S1/S2 and Tachycardia; No Murmur
GI: Soft, Non Tender, Non Distended and Normal Bowel Sounds
Musculoskeletal: No Clubbing, No Cyanosis and Other (Trace edema of the R ankle.)
Neuro: AO x 3
COPD with Acute Exacerbation
Chronic Hypoxemic Respiratory Failure on 4.5 L at home
- Exacerbation likely in part due to lack of medications for the past few days.
- IV steroids, nebs ATC and PRN.
- Follow for clinical improvement.
- hold usual thrice weekly azithromycin until done with cipro; qtc acceptable
Pulmonary following
Symptomatic UTI
urine culture with klebsiella; switch abx to cipro
History of Pseudomonas
Peripheral Neuropathy
- Stable. Continue gabapentin (patient does recall name / dose of this medication).
Anxiety / Depression
cw Wellbutrin,abilify
- Continue PRN BZDs for now.
Palliative Care
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
- Given issues over the past few days - ? if she would benefit from placement / assisted living / etc?
- Morphine as needed for pain / anxiety / air hunger.
DVT Prophylaxis: Lovenox
Code Status: DNR
Anticipated Discharge: Within 24 hours
Subjective/Interval History
-
Date of Service: May 12, 2024
denies pain
Objective Data
-
Labs:
Laboratory Results
05/12/24
06:20
WBC Pending
Hgb Pending
Hct Pending
Plt Count Pending
Vital Signs:
Vital Signs
Temp Pulse Resp BP Pulse Ox
98.1 F 82 14 112/67 98
05/12/24 11:02 05/12/24 11:13 05/12/24 11:13 05/12/24 11:02 05/12/24 11:02
I&O
05/11/24 05/12/24 05/13/24
06:59 06:59 06:59
Intake Total 780 / 780 480 / 480
Balance 780 / 780 480 / 480
[2024-05-12] MEDS: CIPRO 500 MG PO ×2 (12:15→19:39)
[2024-05-12 13:10] LABS: Hemoglobin 11.5 g/dL (12.0-16.0); Mean Corp Hgb Conc. 32.9 g/dL (33.0-37.0); Mean Corpuscular Hgb 30.9 pg (27.0-31.0); Mean Corpuscular Volume 94.1 fL (81.0-99.0); Mean Platelet Volume 10.4 fL (7.4-10.4); Platelet Count 231 10^3/uL (130-400); Red Blood Cell Count 3.72 10^6/uL (4.20-5.40); Red Cell Dist. Width 14.8 % (11.5-14.5); White Blood Cell Count 5.8 10^3/uL (4.8-10.8)
[2024-05-12 13:11] LABS: % Immature Granulocytes 0.3 % (0-0.5); % Lymphocytes 11.5 % (20.5-51.1); % Monocytes 9.9 % (1.7-9.3); % Neutrophils 78.3 % (42.2-75.2); Absolute Lymphocytes 0.7 10^3/uL (1.2-3.4); Absolute Monocytes 0.6 10^3/uL (0.1-0.6); Absolute Neutrophils 4.6 10^3/uL (1.4-6.5); Nucleated Red Blood Cells % 0 %
[2024-05-12] MEDS: LOVENOX 40 MG SC (15:56)
[2024-05-12] MEDS: PULMICORT 0.5 MG INH (20:16)
[2024-05-12] MEDS: TYLENOL 650 MG PO (21:40)
[2024-05-12] MEDS: MORPHINE SULFATE 2 MG IV (22:22)
[2024-05-13 03:08] VITALS: BP 118/75
[2024-05-13] MEDS: PULMICORT 0.5 MG INH ×2 (07:33→20:48)
[2024-05-13] MEDS: DUONEB 3 ML INH ×4 (07:36→20:48)
[2024-05-13 07:48] VITALS: BP 122/78
[2024-05-13 08:33] LABS: % Basophils 0.1 % (0-2); % Immature Granulocytes 0.3 % (0-0.5); % Lymphocytes 13.7 % (20.5-51.1); % Monocytes 10.4 % (1.7-9.3); % Neutrophils 75.5 % (42.2-75.2); Absolute Monocytes 0.7 10^3/uL (0.1-0.6); Absolute Neutrophils 5.4 10^3/uL (1.4-6.5); Hematocrit 34.4 % (37.0-47.0); Hemoglobin 11.4 g/dL (12.0-16.0); Mean Corp Hgb Conc. 33.1 g/dL (33.0-37.0); Mean Corpuscular Hgb 31.1 pg (27.0-31.0); Mean Platelet Volume 9.8 fL (7.4-10.4); Nucleated Red Blood Cells % 0 %; Platelet Count 236 10^3/uL (130-400); Red Blood Cell Count 3.66 10^6/uL (4.20-5.40); Red Cell Dist. Width 14.6 % (11.5-14.5); White Blood Cell Count 7.1 10^3/uL (4.8-10.8)
[2024-05-13] MEDS: WELLBUTRIN XL (24 hour extended release) 450 MG PO (08:34)
[2024-05-13] MEDS: ABILIFY 5 MG PO (08:35)
[2024-05-13] MEDS: NAMENDA PO ×2 (08:35→08:48)
[2024-05-13] MEDS: NEURONTIN 600 MG PO ×3 (08:35→21:21)
[2024-05-13] MEDS: CIPRO 500 MG PO ×2 (08:35→19:55)
[2024-05-13] MEDS: DECADRON 4 MG IV ×2 (08:36→19:55)
[2024-05-13] MEDS: PROTONIX 40 MG PO (08:36)
[2024-05-13] MEDS: FLUSH (NSS) 1 FLUSH IV (08:37)
[2024-05-13] MEDS: ATIVAN 0.5 MG PO ×3 (08:52→21:22)
[2024-05-13 10:57] LABS: Venous Blood Gas HCO3 30.5 mmol/L (22-27); Venous Blood Gas O2 Sat % 67.9 %; Venous Blood Gas pCO2 54 mmHg (35-48); Venous Blood Gas pH 7.36 (7.32-7.43); Venous Blood Gas pO2 39 mmHg (30-50)
[2024-05-13 11:00] VITALS: BP 121/77; BP 122/78; BP 122/81; BP 122/87; PULSE 100; PULSE 104; PULSE 94
--- NOTE | 2024-05-13 11:28 | W.PN.PUL3 ---
Today's Communication / Plan
-
Morphine PRN helpful, continue for now
Continue IV steroids and transition to PO steroid taper tomorrow or upon discharge
She remains on 4-5L NC/this is her baseline use
Encouraged OOB/IS
Pall care was discussed, she is enrolled as OP
She is DNR, if she were to decompensate would discuss comfort measures
Assessment
-
73-year-old woman with advanced COPD, minimal effort dyspnea at baseline, anxiety, on maximal medical therapy, now on narcotics for air hunger and palliative care. Comes to the hospital 05/10/2024 with worsening shortness of breath over the last 4 to
5 days. Worsening in the last 24 hours with minimal effort. Unrelieved by nebulizers. We were consulted on 05/10/2024 for evaluation.
Impression:
Acute on chronic SOB
AECOPD
FTT
Pulmonary cachexia
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
Last discharged from the hospital 09/2023. Not on palliative care
Hospital admission-acute exacerbation of COPD 07/2022.
COPD/emphysema, history of frequent exacerbations/chronic prednisone use
Follows with Dr Harris, last seen 02/03/22
On budesonide and DuoNebs
Chronic O2 use 3L
Last PFT 2018- FEV1 0.97L 41%, DLCO 7%-- no further tests are attempted as she cannot perform them
RUL spiculated nodule--discussed with patient/daughter, no further w/u as she would not be amenable for treatment
Hx of Falls
Chronic alcohol abuse
Polycythemia
Chronic gastritis/NSAID use
Kyphoscoliosis�
Idiopathic progressive polyneuropathy
Current moderate episode of major depressive disorder without prior episode
Diverticulosis
Chronic diarrhea with hypokalemia
Former smoker
Assessment and plan:
Patient well-known to us from [facility] office, follows with Dr. Harris - has advanced COPD with chronic shortness of breath despite maximal medical therapy.
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
Her oxygenation is at baseline. She remains on 4-5L NC
Poor air movement at baseline as well.
So far no evidence for pulmonary infection.
Chest x-ray reviewed showed no acute infiltrates.
D-dimer and proBNP normal. Laboratory testing all normal.
She is on antibiotics for Klebsiella aerogenes seen on urine culture from 05/10/2024 � Abx changed to cipro on 05/12 s/p cefepime (given 05/10 - 05/12) + 1 dose of zithromax; complete 5-7 days of antibiotics assuming she continues to improve and remains
afebrile for 2 days prior to stopping antibiotics
Unfortunately, there are a few options for this patient from pulmonary perspective. She has been on maximal medical therapy.
She is cachectic at baseline and deconditioned.
Has been on maximal medical therapy DuoNebs/Pulmicort/steroids added low-dose intermittently/chronic macrolide therapy.
For now I agree with IV corticosteroids --> can wean tomorrow to prednisone starting at 50mg and reduce slowly by dropping 10mg every 5th day until at 5mg daily that she should continue chronically
Continue DuoNebs QID + budesonide BID --> on 05/12 I raised dose to 0.5mg from 0.25
No indication for antibiotics to treat lung infection. She is chronically on low-dose azithromycin, continue for now.
I agree with narcotics for dyspnea sensation. She is on Palliative care with Dr. Meyer.
She is SOB at rest with conversation.
Continue morphine IV 0.5 IV PRN for dyspnea, she does find this helpful
-
In the past we have discussed noninvasive mechanical ventilation but she is not interested.
Serum HCO3 is 29 from 05/11/2024 --> VBG from this AMm (05/13) shows stable hypercapnea with pH 7.36 (corrected pH 7.4), pCO2 54 --> no additional recs at this time
-
If there is no improvement, no acute reason for decompensation, additional goals of cares may need to be discussed.
Will be an ongoing discussion on a day by day basis.
-
Outpatient FU recommended
Pulmonary service will continue to follow
Total time spent today was 35 minutes for this encounter. Time includes reviewing laboratory test/imaging results, reviewing pertinent medical records, obtaining and reviewing medical history, performing an appropriate exam, ordering medications,
tests and procedures. Time also includes documentation of this encounter, coordinating patient care and communicating with other healthcare professionals. Total time does not include separately billed tests performed on this date of service.
Subjective Data
-
Date of Service:
Date of Service: May 13, 2024
Chief Complaint: Pulmonary Follow Up and Dyspnea Follow Up
Subjective:
Seen and evaluated today at bedside. Still having cramping at night that she says morphine helps tremendously. Currently on 4 L/min nasal cannula breathing comfortably. She denies chest pain, abdominal pain, fevers or chills.
Review of Systems
General: Other (Negative unless mentioned above)
Objective Data
Data Reviewed
Vital Signs / I&O / Oxygen:
Vital Signs
Temp Pulse Resp BP Pulse Ox
98.3 F 94 18 122/81 98
05/13/24 11:00 05/13/24 11:00 05/13/24 11:00 05/13/24 11:00 05/13/24 11:00
Intake and Output
05/12/24 05/13/24 05/14/24
06:59 06:59 06:59
Intake Total 480 / 480 240 / 240
Balance 480 / 480 240 / 240
SaO2 98
Nasal Cannula flow liters per 4
minute
Physical Exam
General: Respiratory Distress (negative), Comfortable and Other (no acute distress)
HEENT: Normocephalic, Anicteric and Moist Mucous Membranes
Cardiovascular: S1-S2 and Other (Distant cardiac sounds)
Respiratory: Clear, Wheeze (Negative), Crackles (Negative), Rhonchi (Negative), Non-Labored Respirations and Other (significantly decreased breath sounds)
GI: Soft, Non Distended and Non Tender
Neurology: AO x 3 and Tremors (negative)
Skin: Warm, Dry and Jaundice (negative)
Labs/Micro/Reports
Lab Data
05/13/24 08:07
05/11/24 08:24
Microbiology
05/10/24 13:40 Urine Urine Culture - Final
Klebsiella aerogenes
--- NOTE | 2024-05-13 11:42 | W.PN.HOSP.TC ---
Today's Communication/Plan
-
Monitor vital signs
see plan
Continue with oxygen
Continue with steroids, nebs
Continue with anxiety meds
Sister updated over the phone, hopeful transition to prednisone tomorrow
Assessment / Plan
Assessment / Plan
General: No acute distress, on oxygen
HEENT: Moist mucous membranes, PERRLA
Respiratory: Decreased breath sounds
Cardiac: S1/S2 and Tachycardia; No Murmur
GI: Soft, Non Tender, Non Distended and Normal Bowel Sounds
Musculoskeletal: No Clubbing, No Cyanosis and Other (Trace edema of the R ankle.)
Neuro: AO x 3
COPD with Acute Exacerbation
Chronic Hypoxemic Respiratory Failure on 4.5 L at home
- Exacerbation likely in part due to lack of medications for the past few days.
- IV steroids, nebs ATC and PRN. Spoke with pulmonary. Plan for prednisone on discharge with slow taper and to keep at 5 mg which she will stay chronically
- Follow for clinical improvement.
- hold usual thrice weekly azithromycin until done with cipro; qtc acceptable. starting tomorrow 05/14 restart azithro
Pulmonary following
Symptomatic UTI
urine culture with klebsiella; switched abx to cipro;
History of Pseudomonas
Peripheral Neuropathy
- Stable. Continue gabapentin (patient does recall name / dose of this medication).
Anxiety / Depression
cw Wellbutrin,abilify
- Continue PRN BZDs for now.
Palliative Care
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
- Morphine as needed for pain / anxiety / air hunger.
DVT Prophylaxis: Lovenox
Code Status: DNR
Anticipated Discharge: Within 24 hours
Subjective/Interval History
-
Date of Service: May 13, 2024
denies pain
Objective Data
-
Labs:
Laboratory Results
05/13/24
08:07
WBC 7.1
Hgb 11.4 L
Hct 34.4 L
Plt Count 236
Vital Signs:
Vital Signs
Temp Pulse Resp BP Pulse Ox
98.3 F 82 14 122/81 98
05/13/24 11:00 05/13/24 11:37 05/13/24 11:37 05/13/24 11:00 05/13/24 11:00
I&O
05/12/24 05/13/24 05/14/24
06:59 06:59 06:59
Intake Total 480 / 480 240 / 240
Balance 480 / 480 240 / 240
[2024-05-13 15:18] VITALS: BP 124/81
[2024-05-13] MEDS: LOVENOX 40 MG SC (17:04)
[2024-05-13 19:16] VITALS: BP 115/75; BP 120/77; BP 124/78; PULSE 103; PULSE 108; PULSE 113
[2024-05-13 23:18] VITALS: BP 128/69
[2024-05-14] MEDS: MELATONIN 5 MG PO ×2 (01:52→22:00)
[2024-05-14] MEDS: WELLBUTRIN XL (24 hour extended release) 450 MG PO (07:15)
[2024-05-14] MEDS: PROTONIX 40 MG PO (07:16)
[2024-05-14] MEDS: ABILIFY 5 MG PO (07:16)
[2024-05-14] MEDS: NAMENDA 10 MG PO (07:16)
[2024-05-14] MEDS: CIPRO 500 MG PO (07:16)
[2024-05-14] MEDS: ATIVAN 0.5 MG PO ×3 (07:16→22:00)
[2024-05-14] MEDS: NEURONTIN 600 MG PO ×3 (07:17→22:00)
[2024-05-14] MEDS: DECADRON 4 MG IV ×2 (07:18→15:43)
[2024-05-14 07:25] VITALS: BP 112/72; BP 117/72; BP 121/73; PULSE 90; PULSE 96
[2024-05-14 07:38] LABS: % Immature Granulocytes 0.4 % (0-0.5); % Lymphocytes 12.4 % (20.5-51.1); % Monocytes 10.2 % (1.7-9.3); Absolute Lymphocytes 0.9 10^3/uL (1.2-3.4); Absolute Monocytes 0.7 10^3/uL (0.1-0.6); Absolute Neutrophils 5.3 10^3/uL (1.4-6.5); Hematocrit 32.4 % (37.0-47.0); Hemoglobin 10.9 g/dL (12.0-16.0); Mean Corp Hgb Conc. 33.6 g/dL (33.0-37.0); Mean Corpuscular Hgb 30.4 pg (27.0-31.0); Mean Corpuscular Volume 90.3 fL (81.0-99.0); Mean Platelet Volume 9.6 fL (7.4-10.4); Nucleated Red Blood Cells % 0 %; Platelet Count 244 10^3/uL (130-400); Red Blood Cell Count 3.59 10^6/uL (4.20-5.40); Red Cell Dist. Width 14.7 % (11.5-14.5); White Blood Cell Count 6.9 10^3/uL (4.8-10.8)
--- NOTE | 2024-05-14 07:38 | W.PN.PUL3 ---
Today's Communication / Plan
-
Overall significantly improved objectively and subjectively
She is at her baseline with regards to oxygen requirement
Transition to oral prednisone, 40 mg, slow taper
Continue with nebulized therapy
Disposition efforts
Assessment
-
73-year-old woman with advanced COPD, minimal effort dyspnea at baseline, anxiety, on maximal medical therapy, now on narcotics for air hunger and palliative care. Comes to the hospital 05/10/2024 with worsening shortness of breath over the last 4 to
5 days. Worsening in the last 24 hours with minimal effort. Unrelieved by nebulizers. We were consulted on 05/10/2024 for evaluation.
Impression:
Acute on chronic SOB
AECOPD
FTT
Pulmonary cachexia
Conditions present PATIENT ACCOUNT LIAISON:
Last discharged from the hospital 09/2023. Not on palliative care
Hospital admission-acute exacerbation of COPD 07/2022.
COPD/emphysema, history of frequent exacerbations/chronic prednisone use
Follows with Dr Harris, last seen 02/03/22
On budesonide and DuoNebs
Chronic O2 use 3L
Last PFT 2018- FEV1 0.97L 41%, DLCO 7%-- no further tests are attempted as she cannot perform them
RUL spiculated nodule--discussed with patient/daughter, no further w/u as she would not be amenable for treatment
Hx of Falls
Chronic alcohol abuse
Polycythemia
Chronic gastritis/NSAID use
Kyphoscoliosis�
Idiopathic progressive polyneuropathy
Current moderate episode of major depressive disorder without prior episode
Diverticulosis
Chronic diarrhea with hypokalemia
Former smoker
Plan/recommendations
At this time, patient appears to be improved objectively and subjectively
She feels she is back to her baseline, currently on 4 to 5 L. Baseline is 4.5 L at home
Decreased breath sounds on exam, no wheezing, no crackles
No use of accessory muscles
Patient well-known to us from [facility] office, follows with Dr. Harris - has advanced COPD with chronic shortness of breath despite maximal medical therapy.
So far no evidence for pulmonary infection.
Chest x-ray reviewed showed no acute infiltrates.
D-dimer and proBNP normal. Laboratory testing all normal.
She is on antibiotics for Klebsiella aerogenes seen on urine culture from 05/10/2024 � Abx changed to cipro on 05/12 s/p cefepime (given 05/10 - 05/12) + 1 dose of zithromax; complete 5-7 days of antibiotics assuming she continues to improve and remains
afebrile for 2 days prior to stopping antibiotics
Unfortunately, there are a few options for this patient from pulmonary perspective. She has been on maximal medical therapy.
She is cachectic at baseline and deconditioned.
Has been on maximal medical therapy DuoNebs/Pulmicort/steroids added low-dose intermittently/chronic macrolide therapy.
For now I agree with IV corticosteroids --> can wean tomorrow to prednisone starting at 50mg and reduce slowly by dropping 10mg every 5th day until at 5mg daily that she should continue chronically
Continue DuoNebs QID + budesonide BID
No indication for antibiotics to treat lung infection. She is chronically on low-dose azithromycin, continue for now.
I agree with narcotics for dyspnea sensation. She is on Palliative care with Dr. Meyer.
She is SOB at rest with conversation.
Continue morphine IV 0.5 IV PRN for dyspnea, she does find this helpful
In the past we have discussed noninvasive mechanical ventilation but she is not interested.
Serum HCO3 is 29 from 05/11/2024 --> VBG from this AMm (05/13) shows stable hypercapnea with pH 7.36 (corrected pH 7.4), pCO2 54 --> no additional recs at this time
Suspect she is close for discharge, plan for outpatient follow-up as needed
May benefit from low-dose steroid therapy as outpatient for palliative care perspective
Disposition efforts
Subjective Data
-
Date of Service:
Date of Service: May 14, 2024
Chief Complaint: Pulmonary Follow Up and Dyspnea Follow Up
Subjective:
Patient without complaints this morning. She is feeling much improved with regards to her breathing. Denies chest pain, nausea, cough, hemoptysis
Objective Data
Data Reviewed
Vital Signs / I&O / Oxygen:
Vital Signs
Temp Pulse Resp BP Pulse Ox
97.5 F 100 20 128/69 99
05/13/24 23:18 05/13/24 23:18 05/13/24 23:18 05/13/24 23:18 05/13/24 23:18
Intake and Output
05/13/24 05/14/24 05/15/24
06:59 06:59 06:59
Intake Total 240 / 240 220 / 220
Balance 240 / 240 220 / 220
SaO2 99
Nasal Cannula flow liters per 4
minute
Physical Exam
General: Comfortable and Other (no acute distress)
HEENT: Normocephalic, Anicteric and Moist Mucous Membranes
Cardiovascular: S1-S2, Regular Rhythm, Murmur (n) and Rub (n)
Respiratory: Clear, Wheeze (Negative), Crackles (Negative), Rhonchi (Negative), Non-Labored Respirations and Stridor (n)
GI: Soft, Non Distended and Non Tender
Neurology: Awake, Alert and No Motor Deficits (Moves all extremities, sits up without difficulty)
Skin: Warm, Dry, Cyanosis (n) and Rash (n)
Labs/Micro/Reports
Lab Data
05/11/24 08:24
Microbiology
05/10/24 13:40 Urine Urine Culture - Final
Klebsiella aerogenes
[2024-05-14] MEDS: DUONEB 3 ML INH ×4 (07:42→19:31)
[2024-05-14] MEDS: PULMICORT 0.5 MG INH ×2 (07:43→19:31)
--- NOTE | 2024-05-14 11:35 | W.PN.HOSP.TC ---
Today's Communication/Plan
-
anticipate DC with HH tomorrow
Assessment / Plan
Assessment / Plan
General: No acute distress, on oxygen
HEENT: Moist mucous membranes, PERRLA
Respiratory: Decreased breath sounds
Cardiac: S1/S2 and Tachycardia; No Murmur
GI: Soft, Non Tender, Non Distended and Normal Bowel Sounds
Musculoskeletal: No Clubbing, No Cyanosis and Other (Trace edema of the R ankle.)
Neuro: AO x 3
COPD with Acute Exacerbation
Chronic Hypoxemic Respiratory Failure on 4.5 L at home
- Exacerbation likely in part due to lack of medications for the past few days.
- on IV Decadron, transition to prednisone tomorrow - will go out on longer taper starting at 40mg and reduce slowly by dropping 10mg every 5th day until at 5mg daily that she should continue chronically
- hold usual thrice weekly azithromycin until done with cipro; qtc acceptable. starting tomorrow 05/14 restart azithro
Pulmonary following
Symptomatic UTI
urine culture with klebsiella; switched abx to cipro;
History of Pseudomonas
Peripheral Neuropathy
- Stable. Continue gabapentin (patient does recall name / dose of this medication).
Anxiety / Depression
cw Wellbutrin,abilify
- Continue PRN BZDs for now.
Palliative Care
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
- Morphine as needed for pain / anxiety / air hunger.
DVT Prophylaxis: Lovenox
Code Status: DNR
Anticipated Discharge: 24 - 48 hours
Subjective/Interval History
-
Date of Service: May 14, 2024
feeling better
feels like she needs one more night in the hospital
dysuria resolved
Objective Data
-
Labs:
Laboratory Results
05/14/24
07:24
WBC 6.9
Hgb 10.9 L
Hct 32.4 L
Plt Count 244
Vital Signs:
Vital Signs
Temp Pulse Resp BP Pulse Ox
98.0 F 76 20 121/73 97
05/14/24 07:25 05/14/24 07:47 05/14/24 07:47 05/14/24 07:25 05/14/24 07:47
I&O
05/13/24 05/14/24 05/15/24
06:59 06:59 06:59
Intake Total 240 / 240 220 / 220
Balance 240 / 240 220 / 220
Review of Systems
-
History Source: Patient
All other systems: Reviewed and negative
Physical Exam
-
General: No Apparent Distress
HEENT: PERRLA
Respiratory: Decreased Breath Sounds; Negative Wheezes
Cardiac: S1/S2
GI: Soft and Nontender
Musculoskeletal: No Edema
Psych: Calm
Data Reviewed
-
Diagnostic Radiology: Report Reviewed by me
Labs: Labs Reviewed by me
--- NOTE | 2024-05-14 12:22 | CM ---
Addendum entered by Mercedes Arechiga 05/14/24 12:36:
Updated patient bedside with advance directive is not in system.
Original Note:
Patient seen with sister, Michaela. Patient reports she goes by 'Kathy'. Patient reports she would like [facility] upon discharge, CM will update [facility] liaison. Patient reports she would like another day or so in the hospital, patient aware that plan for
discharge is likely tomorrow. Patient and sister inquiring if patients advanced directive is in system, CM will confirm. Patient reports she will need ambulance transport back home. CM discussed patient may not be covered by insurance for ambulance
transport. Patients sister, Micheala, reports patient typically goes home by [facility]. Patient reports she will do whatever her sister says, agreeable to [facility] transport upon discharge. CM will continue to follow for all discharge planning needs.
Plan; home with [facility], [facility] care, private caregiver services.
[2024-05-14] MEDS: MIRALAX 17 GRAMS PO (14:03)
[2024-05-14] MEDS: COLACE 100 MG PO ×2 (14:04→22:00)
[2024-05-14 15:07] VITALS: BP 123/66
[2024-05-14] MEDS: LOVENOX 40 MG SC (15:53)
[2024-05-14 16:00] VITALS: BP 116/79; PULSE 100; O2SAT 96
--- NOTE | 2024-05-14 16:45 | PTCARENOTE ---
05/14- Patient requests Morphine to go home with because, 'My Doctor, Dr. Kirk explained morphine to me, and I have been with him for 20 years dealing with this leg pain. My legs tickle and wrestle at night time every night.' Patient clarified she
is currently not in pain, but she wants the morphine for nighttime. Advised she does have morphine IV PRN ordered for Restless Legs. She wants an oral pill to be able to take during the day as well, but currently denies pain. Advised Morphine is
available if she is in pain or experiencing Restless Legs, but I will ask the doctor about discharge pain medication. Pt verbalizes understanding. Notified Physician.
[2024-05-14 19:19] VITALS: BP 117/78; BP 122/81; BP 130/83; PULSE 101; PULSE 104; PULSE 97
[2024-05-14 23:07] VITALS: BP 124/82
[2024-05-14] MEDS: MORPHINE SULFATE 2 MG IV (23:26)
[2024-05-15 07:00] VITALS: BP 127/80
[2024-05-15] MEDS: DUONEB 3 ML INH ×3 (08:06→15:22)
[2024-05-15] MEDS: PULMICORT 0.5 MG INH (08:08)
[2024-05-15] MEDS: WELLBUTRIN XL (24 hour extended release) 450 MG PO (08:27)
[2024-05-15] MEDS: NEURONTIN 600 MG PO ×2 (08:27→15:42)
[2024-05-15] MEDS: NAMENDA 10 MG PO (08:28)
[2024-05-15] MEDS: COLACE 100 MG PO (08:28)
[2024-05-15] MEDS: ABILIFY 5 MG PO (08:28)
[2024-05-15] MEDS: DELTASONE 40 MG PO (08:28)
[2024-05-15] MEDS: PROTONIX 40 MG PO (08:30)
[2024-05-15] MEDS: ATIVAN 0.5 MG PO ×2 (08:33→15:42)
[2024-05-15] MEDS: MIRALAX PO (09:23)
--- NOTE | 2024-05-15 10:11 | W.PN.PUL3 ---
Today's Communication / Plan
-
Slow prednisone taper as below
Consider morphine as outpatient for neuropathic pain. Patient states helped her tremendously
Follow-up with palliative care
We will sign off. Please call with questions
Assessment
-
73-year-old woman with advanced COPD, minimal effort dyspnea at baseline, anxiety, on maximal medical therapy, now on narcotics for air hunger and palliative care. Comes to the hospital 05/10/2024 with worsening shortness of breath over the last 4 to
5 days. Worsening in the last 24 hours with minimal effort. Unrelieved by nebulizers. We were consulted on 05/10/2024 for evaluation.
Impression:
Acute on chronic SOB
AECOPD
FTT
Pulmonary cachexia
Conditions present [employer]:
Last discharged from the hospital 09/2023. Not on palliative care
Hospital admission-acute exacerbation of COPD 07/2022.
COPD/emphysema, history of frequent exacerbations/chronic prednisone use
Follows with Dr Harris, last seen 02/03/22
On budesonide and DuoNebs
Chronic O2 use 3L
Last PFT 2017- FEV1 0.97L 41%, DLCO 7%-- no further tests are attempted as she cannot perform them
RUL spiculated nodule--discussed with patient/daughter, no further w/u as she would not be amenable for treatment
Hx of Falls
Chronic alcohol abuse
Polycythemia
Chronic gastritis/NSAID use
Kyphoscoliosis�
Idiopathic progressive polyneuropathy
Current moderate episode of major depressive disorder without prior episode
Diverticulosis
Chronic diarrhea with hypokalemia
Former smoker
Plan/recommendations
At this time, patient appears to be improved objectively and subjectively
She feels she is back to her baseline, currently on 4 to 5 L. Baseline is 4.5 L at home
Decreased breath sounds on exam, no wheezing, no crackles
No use of accessory muscles
Patient well-known to us from [facility] office, follows with Dr. Harris - has advanced COPD with chronic shortness of breath despite maximal medical therapy.
She states that morphine helped her neuropathy and she would like morphine at time of discharge
Moving forward
Plan to discharge on prednisone, slow taper decrease by 10 mg every 5 days down to 10 mg baseline dose
Further treatment can be determined by palliative care
Also consider discharge on morphine. Patient states it has helped her tremendously with regards to her neuropathy
This can also be managed by palliative care
Antibiotics for UTI
Unfortunately, there are a few options for this patient from pulmonary perspective. She has been on maximal medical therapy.
She is cachectic at baseline and deconditioned.
Has been on maximal medical therapy DuoNebs/Pulmicort/steroids added low-dose intermittently/chronic macrolide therapy.
Continue DuoNebs QID + budesonide BID
Disposition efforts
We will sign off. Please call with questions
Subjective Data
-
Date of Service:
Date of Service: May 15, 2024
Chief Complaint: Pulmonary Follow Up and Dyspnea Follow Up
Subjective:
Patient feels at her baseline. She denies chest pain, cough, nausea, abdominal pain. She felt morphine helped her neuropathic pain
Objective Data
Data Reviewed
Vital Signs / I&O / Oxygen:
Vital Signs
Temp Pulse Resp BP Pulse Ox
98.0 F 88 16 127/80 96
05/15/24 07:00 05/15/24 08:08 05/15/24 08:08 05/15/24 07:00 05/15/24 08:08
Intake and Output
05/14/24 05/15/24 05/16/24
06:59 06:59 06:59
Intake Total 220 / 220 1000 / 1000
Balance 220 / 220 1000 / 1000
SaO2 96
Nasal Cannula flow liters per 4.5
minute
Physical Exam
General: Comfortable and Other (no acute distress)
HEENT: Normocephalic, Anicteric and Moist Mucous Membranes
Cardiovascular: S1-S2, Regular Rhythm, Murmur (n) and Rub (n)
Respiratory: Clear, Wheeze (Negative), Crackles (Negative), Rhonchi (Negative), Non-Labored Respirations and Stridor (n)
GI: Soft, Non Distended and Non Tender
Neurology: Awake, Alert and No Motor Deficits (Moves all extremities, sits up without difficulty)
Skin: Warm, Dry, Cyanosis (n) and Rash (n)
Labs/Micro/Reports
Lab Data
05/14/24 07:24
05/11/24 08:24
Microbiology
05/10/24 13:40 Urine Urine Culture - Final
Klebsiella aerogenes
[2024-05-15 11:49] VITALS: BP 111/73; PULSE 103; O2SAT 95
--- NOTE | 2024-05-15 12:00 | W.PN.HOSP.TC ---
Today's Communication/Plan
-
OK for DC today
Assessment / Plan
Assessment / Plan
General: No acute distress, on oxygen
HEENT: Moist mucous membranes, PERRLA
Respiratory: Decreased breath sounds
Cardiac: S1/S2 and Tachycardia; No Murmur
GI: Soft, Non Tender, Non Distended and Normal Bowel Sounds
Musculoskeletal: No Clubbing, No Cyanosis and Other (Trace edema of the R ankle.)
Neuro: AO x 3
COPD with Acute Exacerbation
Chronic Hypoxemic Respiratory Failure on 4.5 L at home
- Exacerbation likely in part due to lack of medications for the past few days.
-s/p IV Decadron, transitioned to prednisone today - will go out on longer taper starting at 40mg and reduce slowly by dropping 10mg every 5th day until at 10mg daily- will follow up with Dr. Harris
- resume azithro
Pulmonary following
Symptomatic UTI
urine culture with klebsiella; switched abx to cipro;
History of Pseudomonas
Peripheral Neuropathy
- Stable. Continue gabapentin (patient does recall name / dose of this medication).
Anxiety / Depression
cw Wellbutrin,abilify
- Continue PRN BZDs for now.
Palliative Care
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
- Morphine as needed for pain / anxiety / air hunger. - will DC on PRN Roxanol
DVT Prophylaxis: Lovenox
Code Status: DNR
Anticipated Discharge: Today
Subjective/Interval History
-
Date of Service: May 15, 2024
feeling ready to leave today
morphine helps with LE paraesthesias pain
Objective Data
-
Vital Signs:
Vital Signs
Temp Pulse Resp BP Pulse Ox
98.0 F 80 16 127/80 97
05/15/24 07:00 05/15/24 11:40 05/15/24 11:40 05/15/24 07:00 05/15/24 08:18
I&O
05/14/24 05/15/24 05/16/24
06:59 06:59 06:59
Intake Total 220 / 220 1000 / 1000
Balance 220 / 220 1000 / 1000
Review of Systems
-
History Source: Patient
All other systems: Reviewed and negative
Physical Exam
-
General: No Apparent Distress and Other (cachectic, frail appearing)
HEENT: PERRLA
Respiratory: Decreased Breath Sounds; Negative Wheezes
Cardiac: S1/S2
GI: Soft and Nontender
Musculoskeletal: No Edema
Psych: Calm
Data Reviewed
-
Diagnostic Radiology: Report Reviewed by me
Labs: Labs Reviewed by me
--- NOTE | 2024-05-15 12:24 | W.DS.TRANS ---
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
-
Discharge Instructions:
Discharge Diagnosis/Procedures Acute COPD exacerbation
Acute on chronic hypoxemic respiratory failure
Urinary tract infection
Chronic Pain
Diet As tolerated,Regular
Activity As tolerated
Driving Restrictions As prior to admission
Bathing Restrictions None
Other Services VN,PT,OT
Instructions:
Stand-Alone Forms:
Changes to Home Medications: Yes
Discharge Medications:
DC Medications w/original date entered in [facility]
bupropion HCl 150 mg 24 hr tablet, extended release 450 mg PO DAILY Mental Health/Anxiety 09/14/21
omeprazole 40 mg capsule,delayed release 40 mg PO DAILY Gastrointestinal issue 09/10/22
budesonide 0.25 mg/2 mL suspension for nebulization 0.25 mg inhalation R DAILY Lung/breathing issues 10/01/22
azithromycin 250 mg tablet 250 mg PO MOWEFR Infection 08/31/23
diphenoxylate-atropine 2.5 mg-0.025 mg tablet 1 tab PO DAILYPRN PRN diarrhea 08/31/23
ipratropium 0.5 mg-albuterol 3 mg (2.5 mg base)/3 mL nebulization soln 3 ml inhalation R Q8HPRN PRN sob 08/31/23
methenamine hippurate 1 gram tablet 1 g PO DAILYPRN PRN uti 08/31/23
phenazopyridine 200 mg tablet 200 mg PO TIDPRN PRN uti 08/31/23
lorazepam 0.5 mg tablet (Ativan) 0.5 mg PO TIDPRN PRN anxiety 5 days #15 tabs 09/08/23
aripiprazole 5 mg tablet (Abilify) 5 mg PO DAILY Mental Health 05/10/24
yvoajlosqf-rzxshkfqsrlgn-qlrsupee 50 mg-325 mg-40 mg capsule 1 cap PO Q6HPRN PRN mirgraines 05/10/24
oxycodone 5 mg tablet 5 mg PO BIDPRN PRN sevre pain 05/10/24
gabapentin 300 mg capsule 600 mg (2 x 300 mg) PO TID #180 caps 05/15/24
morphine concentrate 100 mg/5 mL (20 mg/mL) oral solution 5 mg (0.25 mL) PO Q8HPRN PRN severe pain #15 mL 05/15/24
prednisone 10 mg tablet 10 mg PO DAILY #90 tabs 05/15/24
Home Medication Changes
Your Gabapentin dosing has changed to 600mg once every 8 hours - a new script was sent.
Take Prednisone taper as prescribed:
4 tabs (40mg) x 4 more days (received a dose today in hospital); then 3 tabs (30mg) x 5 days; 2 tabs (20mg) x 5 days then 1 tab (10mg) until directed further by Dr. Harris.
You are prescribed liquid morphine to help with severe pain. This will be monitored by the palliative care team.
You can take Miralax as needed for constipation.
Pending Results: No
--- NOTE | 2024-05-15 14:40 | W.DCSUMMARY ---
Discharge Summary
Discharge Data
Date of Admission: 05/10/24
Date of Discharge: 05/15/24
-
Pending Results: No
Hospital Course
Discharging Physician : Dr. Brenda Teixeira
Disposition : Home
Primary care physician : Dr. Yo Lugo
Principal Discharge diagnosis :
Acute COPD exacerbation
Acute on chronic hypoxemic respiratory failure
Urinary tract infection
Chronic Pain
Hospital Course :
Ms. Kathy Ortiz is a 73 yo woman with hx severe COPD on chronic home O2 and enrolled with palliative care at home, peripheral neuropathy, GERD, anxiety, recurrent UTI who presents to the ER with shortness of breath. Chest x-ray reviewed showed no
acute infiltrates. D-dimer and proBNP were normal. She was admitted to medicine with Pulmonary consulting for acute COPD exacerbation. She received IV Decadron and inhalers with improvement over the next several days. She is discharged on a very
slow prednisone taper and will have close outpatient follow up.
Hospital course complicated by UTI and she was treated with Ciprofloxacin.
She is prescribed Roxanol at discharge (discussed with her palliative care team) for pain 2/2 peripheral neuropathy not relieved by Gabapentin.
Time spent on discharge was 35 minutes.
Important imaging findings :
CXR 05/10/24
IMPRESSION:
No focal consolidation.
Mild lung hyperinflation with can be seen with COPD, similar to prior.
Procedure findings :
Discharge Plan
-
Patient Disposition: Home with Home Care
Discharge Diagnosis/Procedures: Acute COPD exacerbation
Acute on chronic hypoxemic respiratory failure
Urinary tract infection
Chronic Pain
Diet: As tolerated and Regular
Activity: As tolerated
Driving Restrictions: As prior to admission
Bathing Restrictions: None
Other Services: VN, PT and OT
Referrals:
Yo Lugo DO [Family Provider] - in less than 1 week
Nikita Mcintosh MD [Active] - in four to six weeks
Additional Discharge Medication Instructions: Your Gabapentin dosing has changed to 600mg once every 8 hours - a new script was sent.
Take Prednisone taper as prescribed:
4 tabs (40mg) x 4 more days (received a dose today in hospital); then 3 tabs (30mg) x 5 days; 2 tabs (20mg) x 5 days then 1 tab (10mg) until directed further by Dr. Harris.
You are prescribed liquid morphine to help with severe pain. This will be monitored by the palliative care team.
You can take Miralax as needed for constipation.
Prescriptions:
New
gabapentin 300 mg Capsule
600 mg PO TID Qty: 180 0RF
prednisone 10 mg tablet
10 mg PO DAILY Qty: 90 0RF
Rx Instructions:
Take 4 tabs (40mg) x 4 days; 3 tabs (30mg) x 5 days; 2 tabs(20mg) x 5 days then 1 tab(10mg) daily until further directed
morphine concentrate 100 mg/5 mL (20 mg/mL) Solution
5 mg PO Q8HPRN PRN (Reason: severe pain) Qty: 15 0RF
Rx Instructions:
5mg or 0.25mL every 8 hours as needed
Continued
bupropion HCl 150 MG tablet extended release 24 hr
450 mg PO DAILY
omeprazole 40 mg capsule,delayed release(DR/EC)
40 mg PO DAILY
budesonide 0.25 MG/2 ML suspension for nebulization
0.25 mg inhalation R DAILY
ipratropium-albuterol 0.5 mg-3 mg(2.5 mg base)/3 mL Solution For Nebulization
3 ml INHALATION R Q8HPRN PRN (Reason: sob)
azithromycin 250 mg Tablet
250 mg PO MOWEFR
phenazopyridine 200 mg Tablet
200 mg PO TIDPRN PRN (Reason: uti)
diphenoxylate-atropine 2.5-0.025 mg Tablet
1 tab PO DAILYPRN PRN (Reason: diarrhea)
methenamine hippurate 1 gram Tablet
1 g PO DAILYPRN PRN (Reason: uti)
lorazepam [Ativan] 0.5 MG tablet
0.5 mg PO TIDPRN PRN (Reason: anxiety) 5 Days Qty: 15 0RF
ybjwebresh-xrdtxybhrpobc-kgee 50-325-40 mg Capsule
1 cap PO Q6HPRN PRN (Reason: mirgraines)
oxycodone 5 mg Tablet
5 mg PO BIDPRN PRN (Reason: sevre pain)
aripiprazole [Abilify] 5 mg Tablet
5 mg PO DAILY
Discontinued
gabapentin 300 mg Capsule
300 mg PO BID
Discharge Orders:
Discharge Patient (As Directed); Ordered 05/15/24
Ordered By: Brenda Teixeira
Discharge Date and Time
Print Language: ITALIAN
[2024-05-15 15:00] VITALS: BP 138/76
--- NOTE | 2024-05-15 16:02 | CM ---
Patient seen bedside, for discharge today. IMM reviewed, signed, placed in chart. CM left message for patients sister, Michaela, to provide payment for Van transport. WC scheduled for 4:00 p.m. CM will continue to follow for all discharge planning
needs.
Plan; home with [facility] and [facility] care.
[facility]: [phone]
[facility]: [phone]
== END 2024-05-15 17:47 | disposition home health service (06) | DRG 190 ==
LOC: 4 WEST ACU 06:12
PROVIDERS: Internal Medicine; ADMITTING PHYSICIAN Hospitalist; ATTENDING PHYSICIAN Student in an Organized Health Care Education/Training Program; CONSULT PHYSICIAN Internal Medicine Critical Care Medicine; EMERGENCY PHYSICIAN Emergency Medicine; FAMILY PHYSICIAN Family Medicine
DX: J44.1 Chronic obstructive pulmonary disease with (acute) exacerbation (principal); J96.21 Acute and chronic respiratory failure with hypoxia; F32.1 Major depressive disorder, single episode, moderate; N39.0 Urinary tract infection, site not specified; R64 Cachexia; Z68.1 Body mass index [BMI] 19.9 or less, adult; Z51.5 Encounter for palliative care; Z87.440 Personal history of urinary (tract) infections; G60.3 Idiopathic progressive neuropathy; F41.9 Anxiety disorder, unspecified
CPT/HCPCS: 71045; 80048; 80053; 81003; 81015; 82805; 83880; 84484; 85025; 87077; 87086; 87186; 93005; 94640; 96374; 97116; 97530; 99285

== ENCOUNTER 2024-05-19 02:33 | Inpatient (IN) | payer MEDICARE, SELFPAY ==
[2024-05-18 21:42] VITALS: BP 106/75; BMI 21.7
[2024-05-18] MEDS: DUONEB 3 ML INH (21:58)
[2024-05-18 22:00] VITALS: BP 123/78
[2024-05-18 22:08] LABS: COVID-19 Antigen Negative (Negative)
[2024-05-18 22:12] LABS: ALT (SGPT) 18 U/L (0-35); AST (SGOT) 16 U/L (14-36); Albumin 4.1 g/dl (3.5-5.0); Alkaline Phosphatase 66 U/L (38-126); Blood Urea Nitrogen 24 mg/dl (7-17); Calcium 9.3 mg/dl (8.4-10.2); Carbon Dioxide 27 mmol/L (22-30); Chloride 96 mmol/L (98-107); Estimated Creatinine Clearance 54 ml/min; Glucose 96 mg/dl (70-99); NT-proBNP 758 pg/ml; Potassium 4.1 mmol/L (3.5-5.1); Sodium 130 mmol/L (135-145); Total Protein 6.4 g/dl (6.3-8.2); Troponin I < 0.012 ng/ml; eGFR > 60.00
[2024-05-18 22:30] VITALS: BP 113/71
[2024-05-18 22:44] LABS: Hematocrit 35.8 % (37.0-47.0); Hemoglobin 12.2 g/dL (12.0-16.0); Mean Corp Hgb Conc. 34.1 g/dL (33.0-37.0); Mean Corpuscular Hgb 30.2 pg (27.0-31.0); Mean Corpuscular Volume 88.6 fL (81.0-99.0); Mean Platelet Volume 9.5 fL (7.4-10.4); Platelet Count 293 10^3/uL (130-400); Red Blood Cell Count 4.04 10^6/uL (4.20-5.40); Red Cell Dist. Width 14.4 % (11.5-14.5); White Blood Cell Count 23.8 10^3/uL (4.8-10.8)
[2024-05-18 22:45] VITALS: BP 108/77
[2024-05-18 22:56] LABS: % Basophils 0.2 % (0-2); % Immature Granulocytes 0.8 % (0-0.5); % Lymphocytes 2.6 % (20.5-51.1); % Monocytes 10.1 % (1.7-9.3); % Neutrophils 86.3 % (42.2-75.2); Absolute Immature Granulocytes 0.2 10^3/uL (0-0.05); Absolute Lymphocytes 0.6 10^3/uL (1.2-3.4); Absolute Monocytes 2.4 10^3/uL (0.1-0.6); Absolute Neutrophils 20.5 10^3/uL (1.4-6.5); Nucleated Red Blood Cells % 0 %
[2024-05-18 23:00] VITALS: BP 108/70
[2024-05-18 23:21] VITALS: BP 113/77
[2024-05-18] MEDS: MAXIPIME 1000 MG IV (23:35)
[2024-05-18] MEDS: VANCOCIN 200 IV (23:41)
--- NOTE | 2024-05-18 23:51 | ED.GENMED ---
History of Present Illness
General
Chief Complaint: Breathing Problem
Source: patient, family and ambulance crew
Exam Limitations: none
Time Seen by Provider: 05/18/24 21:53
Nursing documentation reviewed up to this point in time: agreed with
History of Present Illness
History of Present Illness:
73-year-old female with a past medical history of COPD, chronic respiratory failure on 4 L home oxygen, chronic neuropathy who presents to the emergency department via EMS for evaluation of shortness of breath and mild respiratory distress. Of note
patient was recently admitted to this hospital 05/10/2024 until 05/15/2024 for acute COPD exacerbation and acute on chronic respiratory failure. She reports that she started feeling increasing short of breath this afternoon and EMS was called to the
scene. She was reportedly hypoxic to the 70s for EMS on their arrival with increased work of breathing and significant tachypnea. She was given a DuoNeb and 10 mg of IV Decadron and transported to the ER. On arrival; pulse ox 88% on 6 L nasal
cannula. Aside from shortness of breath patient reports cough. She denies any chest pain. Denies any increase swelling in the leg. Denies any fevers or chills.
Past History
Past History
ED Past Medical History: COPD (Emphysema), Psychiatric (Anxiety) and Other (Migraines, recurrent UTIs, Subdural hematoma, Hiatal hernia, chronic pain syndrome-narcotic dependent)
ED Past Surgical History: (X 2), Orthopedic (Cervical laminectomy, Bilateral total hip replacements, Left wrist surgery) and Other (Cataracts, Bilateral cosmetic eye surgery)
Patient has exhibited threatening behavior?: No
PSI?: No
Social History
Tobacco: Former smoker (4 cigarettes/day)
Alcohol: None
Drug: None
Personal:
Living: alone
Employment: Not employed
Family History
Family History: Other (Noncontributory)
Review of Systems
Review of Systems
All Other Systems: ROS reviewed and negative except as documented in HPI and ROS
Constitutional: Denies fever
Respiratory: Reports cough and trouble breathing
Cardiac: Denies chest pain or palpitations
ABD/GI: Denies abdominal pain, nausea or vomiting
: Denies flank pain
Musculoskeletal: Denies neck pain or back pain
Neurological: Denies dizzy or headache
Phy Exam
Physical Exam
Physical Exam:
General: Awake, alert, oriented x3; no acute distress
Head: Normocephalic, atraumatic
Eyes: Conjunctiva normal
Throat: Airway intact, handling secretions
Neck: Trachea midline, supple without meningismus
Lungs: Mild tachypnea, pulse ox 80% on 6 L nasal cannula, diminished air movement throughout all lung dewey with expiratory wheezing and frequent coughing
Heart: Tachycardia with regular rhythm, no murmurs, gallops, or rubs
Abd: Soft, non distended, nontender
Neuro: No gross deficits
Skin: no rash
Extremities: Trace edema around the ankles, extremities are warm and well-perfused
Scores
Heart Failure Risk
Heart Failure Risk Score: Not Applicable
Heart Score for Chest Pain Patients
STEMI patient?: Not applicable
Withdrawal Assessment of Alcohol
Withdrawal Assessment Completed?: Not applicable
Course
Orders/Labs/Results
Orders:
Orders
05/18/24 21:42
Electrocardiogram (*1) Urgent
Reason for Study: Other
Other Reason for Exam: Respiratory Distress
Cardiac Monitoring- Treatment ONCE
EKG- Treatment ONCE
IV Insert/Care/Rem.- Treatment PRN
CR Chest Portable - 1 View Urgent
Comment:
Reason For Exam: respiratory distress
Reason Study Needs to be Portable: Patient Unstable
O2 Therapy [RESP] Urgent
Titrate/Wean O2 to maintain O2 sat greater than (%): 93
Special Instructions: TO MAINTAIN CONTINUOUS O2 SATS >/= 93%
Pulse Ox/cont/shift [RESP] Urgent
Quantity: 1
Special Instructions: continuous pulse ox
05/18/24 21:44
Complete Blood Count/With Diff Urgent
Comprehensive Metabolic Panel Urgent
NT-proBNP Urgent
Troponin I Urgent
Ipratropium/Albuterol Sulfate [Duoneb] 3 ml .ROUTE .STK-MED ONE
05/18/24 21:49
COVID-19 Antigen Urgent
Source: Nasal Swab
05/18/24 21:53
Ipratropium/Albuterol Sulfate [Duoneb] 3 ml INH R NOW ONE
05/18/24 23:28
Cefepime HCl [Maxipime] 1,000 mg IV NOW STA
Vancomycin 1 Gram/200 ml [Vancocin] 1 gram in 200 ml IV NOW
05/18/24 23:33
Acetaminophen [Tylenol] 650 mg .ROUTE .STK-MED ONE
Sterile Water [Sterile Water For Injection] 10 ml .ROUTE .STK-MED ONE
05/18/24 23:46
Blood Culture Urgent
LIZZETH Source: Blood/Venous
Specimen Description:
05/18/24 23:47
Venous Blood Gas Urgent
%Oxygen/Room Air: 80
Abnormal Lab Results
05/18/24
21:44
WBC 23.8 H 10^3/uL
(4.8-10.8)
RBC 4.04 L 10^6/uL
(4.20-5.40)
Hct 35.8 L %
(37.0-47.0)
Abs Immat Gran (auto) 0.2 H 10^3/uL
(0-0.05)
Absolute Neuts (auto) 20.5 H 10^3/uL
(1.4-6.5)
Absolute Lymphs (auto) 0.6 L 10^3/uL
(1.2-3.4)
Absolute Monos (auto) 2.4 H 10^3/uL
(0.1-0.6)
Immature Gran % 0.8 H %
(0-0.5)
Neutrophils % 86.3 H %
(42.2-75.2)
Lymphocytes % 2.6 L %
(20.5-51.1)
Monocytes % 10.1 H %
(1.7-9.3)
Sodium 130 L mmol/L
(135-145)
Chloride 96 L mmol/L
(98-107)
BUN 24 H mg/dl
(7-17)
05/18/24 21:44
05/18/24 21:44
Vital Signs
Initial and Last Documented VS:
Initial Vital Signs
Temp Pulse Resp BP Pulse Ox
36.2 C 125 28 106/75 94
05/18/24 21:42 05/18/24 21:42 05/18/24 21:42 05/18/24 21:42 05/18/24 21:42
Last Documented Vital Signs
Temp Pulse Resp BP Pulse Ox
36.2 C 116 13 108/77 95
05/18/24 21:42 05/18/24 22:45 05/18/24 22:45 05/18/24 22:45 05/18/24 23:44
MDM/Problems Addressed
Differential Diagnosis Includes:
COPD exacerbation, pneumonia, CHF
MDM/Problems Addressed:
73-year-old female presents for evaluation of increasing shortness of breath and mild respiratory distress. Markedly hypoxic and respiratory distress for EMS, was given a DuoNeb and 10 mg of Decadron IV prehospital and status improved but still
mildly hypoxic and tachypneic on arrival here. She is given an additional DuoNeb with improvement in respiratory status. IV placed labs sent off including a CBC and a CMP, troponin, BNP. Check a stat chest x-ray and EKG. Monitor closely reassess
after the above.
Labs reviewed: CBC shows a leukocytosis to 23.8. CMP mild hyponatremia otherwise unremarkable. proBNP marginally elevated at 758. Troponin undetectable. Chest x-ray shows bibasilar pneumonia. Blood culture sent off. Will cover for healthcare
associated pneumonia given her recent hospitalization. Still mildly tachypneic but respiratory rate has greatly improved, titrating down oxygen. Will admit for continued treatment of COPD exacerbation and pneumonia. Case discussed with hospitalist
for admission.
Chronic conditions affecting care:
COPD, chronic respiratory failure
Acute Exacerbation and/or Progression of Chronic Illness:
Acute COPD exacerbation
*Radiology
Radiology exam reviewed: radiology read reviewed
*Pulse Oximetry
Patient hypoxic: yes
*EKG
Interpreted by ED Provider?: Yes
Heart Rate: 121
Rate: tachycardiac
Rhythm: sinus
[place]: right axis deviation
Ischemia: non-specific ST changes
*Critical Care Note
Total Time (30-74mins, 75-104mins- exclusive of procedures): 30
comment:
Critical care statement: A total of 30 minutes of critical care time was provided for this patient. This includes management of unstable vital signs, evaluation of the patient at bedside, frequent reassessment, discussion with
consultants/hospitalist, and review of pertinent medical records. This time was separate from time utilized to perform any aforementioned documented procedures
Data Reviewed
Review of Other/Old Records Reveals: Labs, Records and Discharge Summary
Source: patient, records, family and ambulance crew
Patient Management
Discussion with other providers: Hospitalist (Discussed with hospitalist)
Escalation/DeEscalation of care consider admission/obs:
Admission indicated
ED Attending Note
-
Portions of this chart may have been created with voice recognition software.� Occasional wrong word or��sound alike� substitutions may have occurred due to the inherent limitations of voice recognition software.
Discharge Plan
Departure
Patient Disposition: Admit
Date of Disposition: 05/18/24
Time of Disposition: 23:47
Admit to doctor: Mario
Presentation/result/management discussed w/ accepting MD/DO: Hospitalist
Discharge Problem:
COPD exacerbation, Pneumonia
Prescriptions:
No Action
bupropion HCl 150 MG tablet extended release 24 hr
450 mg PO DAILY
omeprazole 40 mg capsule,delayed release(DR/EC)
40 mg PO DAILY
budesonide 0.25 MG/2 ML suspension for nebulization
0.25 mg inhalation R DAILY
ipratropium-albuterol 0.5 mg-3 mg(2.5 mg base)/3 mL Solution For Nebulization
3 ml INHALATION R Q8HPRN PRN (Reason: sob)
azithromycin 250 mg Tablet
250 mg PO MOWEFR
phenazopyridine 200 mg Tablet
200 mg PO TIDPRN PRN (Reason: uti)
diphenoxylate-atropine 2.5-0.025 mg Tablet
1 tab PO DAILYPRN PRN (Reason: diarrhea)
methenamine hippurate 1 gram Tablet
1 g PO DAILYPRN PRN (Reason: uti)
lorazepam [Ativan] 0.5 MG tablet
0.5 mg PO TIDPRN PRN (Reason: anxiety) 5 Days Qty: 15 0RF
uxgrmjjwcm-nfpgclsifbadr-uapr 50-325-40 mg Capsule
1 cap PO Q6HPRN PRN (Reason: mirgraines)
oxycodone 5 mg Tablet
5 mg PO BIDPRN PRN (Reason: severe pain)
aripiprazole [Abilify] 5 mg Tablet
5 mg PO DAILY
gabapentin 300 mg Capsule
600 mg PO TID Qty: 180 0RF
prednisone 10 mg tablet
10 mg PO DAILY Qty: 90 0RF
Rx Instructions:
Take 4 tabs (40mg) x 4 days; 3 tabs (30mg) x 5 days; 2 tabs(20mg) x 5 days then 1 tab(10mg) daily until further directed
morphine concentrate 100 mg/5 mL (20 mg/mL) Solution
5 mg PO Q8HPRN PRN (Reason: severe pain, dyspnea) Qty: 15 0RF
Rx Instructions:
5mg or 0.25mL every 8 hours as needed
Referrals:
Yo Lugo, DO [Family Provider] -
Interventions
Interventions:
*Risk Screen - Suicide Last Done: 05/18/24 21:42
*General Assessment Last Done: 05/18/24 21:42
*Neglect/Abuse Screening Last Done: 05/18/24 21:42
*ED COVID-19 Vaccine History Last Done: 05/18/24 21:50
ED- Cardiac Assessment Last Done: 05/18/24 21:50
ED- Pulmonary Assessment Last Done: 05/18/24 21:50
Discharge Date and Time
Print Language: YAKUT
[2024-05-19] VITALS (9 sets, daily range): BP systolic 92–157; BP diastolic 68–87; BMI 20.3
[2024-05-19] MEDS: TYLENOL ORAL SOLUTION 500 MG PO (00:08)
[2024-05-19 00:38] LABS: Venous Blood Gas B.E. 3.3 mmol/L (-4 to +4); Venous Blood Gas HCO3 27.8 mmol/L (22-27); Venous Blood Gas pCO2 41 mmHg (35-48); Venous Blood Gas pH 7.44 (7.32-7.43); Venous Blood Gas pO2 141 mmHg (30-50)
--- NOTE | 2024-05-19 01:37 | HPS.HSE ---
Addendum entered and electronically signed by Roel Martin DO 05/19/24 01:48:
Hyponatremia
- Likely excess ADH due to underlying pulmonary disease.
- Fluid restriction. Follow for improvement.
Original Note:
Family Physician
-
Family Physician: Yo Lugo
Chief Complaint
-
SOB
History of Present Illness
Patient is a 73y F with PMH significant for severe COPD on chronic home O2 who presents to ED complaining of SOB. Patient was recently admitted 05/10 - 05/15 for similar presentation and treated at that time with IV steroids, nebs, etc. She states
that she was feeling improved at the time of discharge. Shortly after her return home she developed a sore throat. She has some intermittent, non-productive chronic cough - but denies any changes. No fevers / chills. No N/V/D. This evening,
patient noted some discomfort in the R shoulder area that did not improve with her Roxanol dosing. She denies any recent injury or trauma or other evident cause of this discomfort.
She states that she then became unable to catch her breath due to the continued pain.
She called EMS and was brought to the ED for further evaluation and treatment.
Medical History
Past Medical History
Past Medical History: Reports Other
Additional Past Medical History:
COPD
Chronic Hypoxic Respiratory Insufficiency
Peripheral Neuropathy
Anxiety
GERD
Migraine Headache
Hx Recurrent UTIs
Past Surgical History: Reports Other
Additional Past Surgical History:
Posterior Cervical Laminectomy
Bilateral Total Hip Replacements
Left Wrist Surgery
Cataracts
Bilateral Eyelid Surgery
Social History
Tobacco: Former Smoker
Alcohol: Occasional
Living: Alone
Family History
Family History: Other (Father with COPD)
Allergies / Home Medications
Allergies reflects when Allergies were last updated in [facility].
Home Medications with original date entered in [facility]
Allergy/Medication List:
Allergies
Allergy/AdvReac Type Severity Reaction Status Date / Time
No Known Allergies Allergy Verified 05/10/24 01:21
Home Medications
bupropion HCl 150 mg 24 hr tablet, extended release 450 mg PO DAILY Mental Health/Anxiety 09/14/21
omeprazole 40 mg capsule,delayed release 40 mg PO DAILY Gastrointestinal issue 09/10/22
budesonide 0.25 mg/2 mL suspension for nebulization 0.25 mg inhalation R DAILY Lung/breathing issues 10/01/22
azithromycin 250 mg tablet 250 mg PO MOWEFR Infection 08/31/23
diphenoxylate-atropine 2.5 mg-0.025 mg tablet 1 tab PO DAILYPRN PRN diarrhea 08/31/23
ipratropium 0.5 mg-albuterol 3 mg (2.5 mg base)/3 mL nebulization soln 3 ml inhalation R Q8HPRN PRN sob 08/31/23
methenamine hippurate 1 gram tablet 1 g PO DAILYPRN PRN uti 08/31/23
phenazopyridine 200 mg tablet 200 mg PO TIDPRN PRN uti 08/31/23
lorazepam 0.5 mg tablet (Ativan) 0.5 mg PO TIDPRN PRN anxiety 5 days #15 tabs 09/08/23
aripiprazole 5 mg tablet (Abilify) 5 mg PO DAILY Mental Health 05/10/24
atpsnayonf-ugazvnwgjmiir-diogmavd 50 mg-325 mg-40 mg capsule 1 cap PO Q6HPRN PRN mirgraines 05/10/24
oxycodone 5 mg tablet 5 mg PO BIDPRN PRN severe pain 05/10/24
gabapentin 300 mg capsule 600 mg (2 x 300 mg) PO TID #180 caps 05/15/24
morphine concentrate 100 mg/5 mL (20 mg/mL) oral solution 5 mg (0.25 mL) PO Q8HPRN PRN severe pain, dyspnea #15 mL 05/15/24
prednisone 10 mg tablet 10 mg PO DAILY #90 tabs 05/15/24
Review of Systems
-
History Source: Patient
A 12 point ROS was completed and negative except as noted: Yes
Constitutional: Reports Fatigue; Denies Fever or Chills
EENT: Reports Sore Throat
Respiratory: Reports Cough and Trouble Breathing; Denies Hemoptysis
Cardiac: Denies Chest Pain, Diaphoresis, Palpitations or Syncope
Abdomen/GI: Denies Abdominal Pain, Nausea or Vomiting
: Denies Dysuria or Frequency
Musculoskeletal: Denies Joint Pain or Edema
Neurological: Denies Dizzy or Headache
Psych: Reports Depression and Anxiety
Physical Exam
Vital Signs
Vital Signs
Temp Pulse Resp BP Pulse Ox
97.2 F 93 15 93/70 93
05/18/24 21:42 05/19/24 01:00 05/19/24 01:00 05/19/24 01:00 05/19/24 01:00
Physical Exam
General: Other (Frail 73y F in mild distress due to dyspnea. Pos conversational dyspnea.)
HEENT: Moist mucous membranes, PERRLA and Other (Neck supple.)
Respiratory: Other (Diffuse end-expiratory wheeze. Rhonchi R lung about 2/3 up.)
Cardiac: S1/S2 and Tachycardia; No Murmur
GI: Soft, Non Tender, Non Distended and Normal Bowel Sounds
Musculoskeletal: No Clubbing, No Cyanosis and Other (1+ edema of the b/l ankles.)
Neuro: AO x 3
Laboratory Results
-
05/18/24 21:44
05/18/24 21:44
Laboratory Results
Total Bilirubin 1.0 mg/dl (0.2-1.3) 05/18/24 21:44
AST 16 U/L (14-36) 05/18/24 21:44
ALT 18 U/L (0-35) 05/18/24 21:44
Alkaline Phosphatase 66 U/L (38-126) 05/18/24 21:44
Troponin I < 0.012 ng/ml 05/18/24 21:44
Impression/Plan
-
A/P: Patient is a 73y F with PMH significant for COPD and chronic hypoxemia who presents to ED complaining of SOB.
Pneumonia
COPD with Acute Exacerbation secondary to the above
Chronic Hypoxemic Respiratory Failure
- Admit for further evaluation and treatment.
- New leukocytosis - not likely entirely due to steroids - and new R base infiltrate on CXR and exam.
- Abx with ceftriaxone and doxycycline.
- Supportive care including nebs, etc.
- Nebs ATC and PRN.
- Resume IV steroids for now.
- Pulmonary re-evaluation.
Peripheral Neuropathy
- Stable. Continue gabapentin.
Anxiety / Depression
- Stable. Continue home regimen.
Palliative Care
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
- Continue morphine as needed for pain / anxiety / air hunger.
- Clinical course as noted - ? benefit of placement, etc for continued end-of-life care?
DVT Prophylaxis: Lovenox
Code Status: DNR
[2024-05-19] MEDS: DUONEB 3 ML INH ×4 (01:39→20:17)
[2024-05-19] MEDS: DECADRON 4 MG IV ×3 (03:42→17:48)
--- NOTE | 2024-05-19 05:49 | TRANSFER ---
Pt admitted from the ED to room 415-2. AAOx3 Pt on 3 L O2 94%. Pt denies SOB at current time. Pt oriented to room and call [facility]ada within reach.
[2024-05-19] MEDS: TYLENOL 650 MG PO ×2 (06:20→19:39)
[2024-05-19] MEDS: PULMICORT 0.25 MG INH ×2 (07:27→20:18)
[2024-05-19] MEDS: MORPHINE SULFATE 0.5 MG IV ×3 (09:02→17:47)
[2024-05-19] MEDS: NEURONTIN 600 MG PO ×3 (09:12→21:19)
[2024-05-19] MEDS: ABILIFY 5 MG PO (09:13)
[2024-05-19] MEDS: VIBRAMYCIN 100 MG PO ×2 (09:13→19:25)
[2024-05-19] MEDS: STERILE WATER FOR INJECTION 10 ML IV (09:13)
[2024-05-19] MEDS: HEPARIN 5000 UNITS SC ×2 (09:13→19:25)
[2024-05-19] MEDS: PROTONIX 40 MG PO (09:13)
[2024-05-19] MEDS: ROCEPHIN 1000 MG IV (09:14)
--- NOTE | 2024-05-19 09:22 | HOSPNOTE ---
Referral received . Hospice will visit this patient today to provide her with information regarding Hospice care.
[2024-05-19 10:04] LABS: Hematocrit 34.4 % (37.0-47.0); Hemoglobin 11.4 g/dL (12.0-16.0); Mean Corp Hgb Conc. 33.1 g/dL (33.0-37.0); Mean Corpuscular Hgb 30.2 pg (27.0-31.0); Mean Corpuscular Volume 91.2 fL (81.0-99.0); Mean Platelet Volume 9.5 fL (7.4-10.4); Platelet Count 269 10^3/uL (130-400); Red Blood Cell Count 3.77 10^6/uL (4.20-5.40); Red Cell Dist. Width 14.5 % (11.5-14.5); White Blood Cell Count 20.8 10^3/uL (4.8-10.8)
[2024-05-19 10:25] LABS: Blood Urea Nitrogen 22 mg/dl (7-17); Calcium 9.5 mg/dl (8.4-10.2); Carbon Dioxide 31 mmol/L (22-30); Chloride 92 mmol/L (98-107); Estimated Creatinine Clearance 66 ml/min; Glucose 101 mg/dl (70-99); Potassium 4.7 mmol/L (3.5-5.1); Sodium 132 mmol/L (135-145); eGFR > 60.00
--- NOTE | 2024-05-19 11:16 | W.PN.HOSP.TC ---
Today's Communication/Plan
-
see A/P
Assessment / Plan
Assessment / Plan
HPI: 73y F with PMH significant for severe COPD on chronic home O2 who p/w SOB.
Patient was recently admitted 05/10 - 05/15 for similar presentation and treated at that time with IV steroids, nebs, etc. She states that she was feeling improved at the time of discharge. Shortly after her return home she developed a sore throat.
She has some intermittent, non-productive chronic cough - but denies any changes.
In the evening, patient noted some discomfort in the R shoulder area that did not improve with her Roxanol dosing. She denies any recent injury or trauma or other evident cause of this discomfort.
She states that she then became unable to catch her breath due to the continued pain.
She called EMS and was brought to the ED for further evaluation and treatment.
A/P:
# Community acquired Pneumonia
# COPD with Acute Exacerbation secondary to the above
# Chronic Hypoxemic Respiratory Failure
Cont O2 support at 4L NC, she is on 4.5 L O2 at home,
New leukocytosis - not likely entirely due to steroids - and CXR noted Mild bibasilar pneumonia.
Cont Abx with ceftriaxone and doxycycline.
Follow blood culture, check MRSA screen
Cont supportive care including nebs ATC and PRN.
Resume IV steroids for now. Decadron 4 IV Q8H
Pulmonary re-evaluation.
# Hyponatremia Likely excess ADH due to underlying pulmonary disease.
Lift fluid restriction with hospice eval.
Follow for improvement.
# Peripheral Neuropathy, Stable.
Continue gabapentin.
# Anxiety / Depression, Stable.
Continue home regimen.
# Palliative Care
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
Continue morphine as needed for pain / anxiety / air hunger.
GOC discussed with pt by Pulm and myself. Pt would like hospice eval. Hospice CS placed.
# Acute urinary retention
cont bladder scan and straight cath PRN
# Diet mince and moist per SPL due to lack of dentures
DVT Prophylaxis: Lovenox
Code Status: DNR
DW Pulm
DW RN
Anticipated Discharge: > 48 hours
Subjective/Interval History
-
Date of Service: May 19, 2024
Objective Data
-
Labs:
Laboratory Results
05/19/24
08:06
WBC 20.8 H
Hgb 11.4 L
Hct 34.4 L
Plt Count 269
Sodium 132 L
Potassium 4.7
Chloride 92 L
Carbon Dioxide 31 H
BUN 22 H
Creatinine 0.6
Glucose 101 H
Calcium 9.5
Vital Signs:
Vital Signs
Temp Pulse Resp BP Pulse Ox
37.1 C 92 18 122/73 96
05/19/24 07:17 05/19/24 07:28 05/19/24 07:28 05/19/24 07:17 05/19/24 07:28
Review of Systems
-
Respiratory: Reports Pleurisy (R sided chest pain)
Physical Exam
-
General: Well Developed, Comfortable, Respiratory Distress (chronic), Conversant and Appears Chronically Ill
HEENT: Normocephalic and Atraumatic
Respiratory: Clear to Auscultation and Non Labored Respirations; Negative Wheezes or Accessory Resp Muscle Use
Cardiac: Regular Rhythm and S1/S2
GI: Soft and Nontender
Neuro: Awake and Alert
Psych: Calm and Intact Judgement/Insight
Data Reviewed
-
Diagnostic Radiology: Image personally visualized and interpreted and Report Reviewed by me
Labs: Labs Reviewed by me
[2024-05-19] MEDS: ATIVAN 0.5 MG PO (11:37)
--- NOTE | 2024-05-19 11:56 | PTOTSP ---
Speech Therapy
Presentation: Patient's speech and language appeared to be WNL during conversation. Patient's voice appeared to be weak which may be related to her fatigue (reported). Patient was seen with top dentures in place and edentulous on the bottom. Per
patient, she has bottom dentures at home. ELECTRIC TRACK SWITCH MAINTAINER noted patient's dentures to be loose, RN aware and patient requested adhesive for her dentures.
Swallowing Function: ELECTRIC TRACK SWITCH MAINTAINER observed RN administer medications whole in puree in which patient appeared to tolerate. Patient refused larger capsule as she 'has trouble swallowing large pills'. RN alerted MD. ELECTRIC TRACK SWITCH MAINTAINER observed patient with several sips of
thin liquids and bites of puree and mechanical soft solids. Patient appeared to tolerate all presentations as she did not exhibit any overt clinical s/sx of aspiration. Patient's dention and current fatigue are likely barriers to harder solids.
Given the above information, recommend IDDSI Level 5 and thin liquids at this time. Consider advancing diet; pending tolerance and clinical presentation.
Recommendations:
1) ISSDI level 5 and thin liquids
2) Aspiration and reflux precautions
3) Medications as tolerated
Plan: ELECTRIC TRACK SWITCH MAINTAINER will continue to follow; pending hospitalization.
--- NOTE | 2024-05-19 12:00 | CON.PUL ---
Consultation
Consultation Request
Date/Time Consultation Requested: 05/19
Date/Time Consultation Performed: 05/19
Reason for Consultation: Shortness of breath, hypoxia
Medical History
-
History of Present Illness:
History obtained from the chart and reviewing outpatient records, recent hospital stay. Patient was recently discharged 05/15 for acute COPD exacerbation. She is on chronic home oxygen, 4.5 L, chronic steroid therapy. She is followed by palliative
care. Patient developed right-sided chest discomfort on 05/18/2024, felt increasingly short of breath. With this she denied hemoptysis, lightheadedness, dizziness, falls or syncope. She called 911. Upon arrival, she was noted to have saturation in
the 70s. She was given nebulized therapy, steroids. Upon arrival to ED she was 88% on 6 L. Chest x-ray suggested new right lower lobe process. She was given nebulized therapy, cefepime/vancomycin admitted for further management. We are asked to
help from pulmonary standpoint
Presently, patient still has right-sided chest discomfort. She denies obvious pleuritic component and describes it as being persistent. She had been in conversation with her family regarding assisted living as presently she is living alone.
.
PMH: Severe end-stage COPD, FEV1 41%, DLCO 7% on chronic oxygen, right upper lobe nodule, history of multiple falls, gastritis, kyphoscoliosis, polyneuropathy, diverticulosis, chronic diarrhea. History of laminectomy, total hip replacement, wrist
surgery, , cataract surgery
Past Medical History
Past Medical History: None (See above)
Past Surgical History: None (See above)
Social History
Tobacco: Smoker (Smokes 4 cigarettes a day)
Alcohol: Occasional
Drug: None
Personal: Single
Living: Alone
Employment: Retired
Family History
Family History: Reviewed & Not Pertinent
Allergies / Home Medications
Allergies
Allergy/AdvReac Type Severity Reaction Status Date / Time
No Known Allergies Allergy Verified 05/10/24 01:21
Home Medications
�Medication �Instructions �Recorded �Confirmed �Last Taken �Type
bupropion HCl 150 mg 24 hr tablet, 450 mg PO DAILY Mental 09/14/21 05/18/24 05/18/24 History
extended release Health/Anxiety
omeprazole 40 mg capsule,delayed 40 mg PO DAILY Gastrointestinal 09/10/22 05/18/24 05/18/24 History
release issue
budesonide 0.25 mg/2 mL suspension 0.25 mg inhalation R DAILY 10/01/22 05/18/24 05/18/24 History
for nebulization Lung/breathing issues
azithromycin 250 mg tablet 250 mg PO MOWEFR Infection 08/31/23 05/18/24 05/18/24 History
diphenoxylate-atropine 2.5 1 tab PO DAILYPRN PRN diarrhea 08/31/23 05/18/24 08/31/23 History
mg-0.025 mg tablet
ipratropium 0.5 mg-albuterol 3 mg 3 ml inhalation R Q8HPRN PRN sob 08/31/23 05/18/24 08/30/23 History
(2.5 mg base)/3 mL nebulization
soln
methenamine hippurate 1 gram tablet 1 g PO DAILYPRN PRN uti 08/31/23 05/18/24 Unknown History
phenazopyridine 200 mg tablet 200 mg PO TIDPRN PRN uti 08/31/23 05/18/24 08/30/23 History
lorazepam 0.5 mg tablet (Ativan) 0.5 mg PO TIDPRN PRN anxiety 5 09/08/23 05/18/24 08/30/23 Rx
days #15 tabs
aripiprazole 5 mg tablet (Abilify) 5 mg PO DAILY Mental Health 05/10/24 05/18/24 05/18/24 History
cyxwgrzyxu-qgiqnjckpmccm-zqqyewjf 1 cap PO Q6HPRN PRN mirgraines 05/10/24 05/18/24 Unknown History
50 mg-325 mg-40 mg capsule
oxycodone 5 mg tablet 5 mg PO BIDPRN PRN severe pain 05/10/24 05/18/24 Unknown History
gabapentin 300 mg capsule 600 mg (2 x 300 mg) PO TID #180 05/15/24 05/18/24 05/18/24 Rx
caps
morphine concentrate 100 mg/5 mL 5 mg (0.25 mL) PO Q8HPRN PRN 05/15/24 05/18/24 Unknown Rx
(20 mg/mL) oral solution severe pain, dyspnea #15 mL
prednisone 10 mg tablet 10 mg PO DAILY #90 tabs 05/15/24 05/18/24 05/18/24 Rx
Review of Systems
-
All other systems: Negative unless noted
Vitals / Labs / Diagnostic Testing
Vital Signs
Temp Pulse Resp BP Pulse Ox
98.2 F 99 20 127/75 95
05/19/24 11:31 05/19/24 11:31 05/19/24 11:31 05/19/24 11:31 05/19/24 11:31
Lab Data
05/19/24 08:06
05/19/24 08:06
Diagnostic Testing:
Physical Exam
-
HEENT: Normocephalic, Anicteric and Other (Kyphoscoliosis, cachexia)
Cardiovascular: S1/S2, Regular Rhythm, Murmur (n) and Rub (n)
Respiratory: Wheeze (Few scattered), Rales (Mild at base), Rhonchi (n) and Accessory Resp Muscle Use (Mild use of accessory muscles with conversation)
GI: Soft, Non Distended and Non Tender
Neurology: Awake, Alert and No Motor Deficits (Moves all extremities, generally weak)
Skin: Other (No rash, mild pallor)
General: Respiratory Distress (Mild use of accessory muscles with conversation)
Assessment
-
73-year-old woman with advanced COPD, minimal effort dyspnea at baseline, anxiety, on maximal medical therapy, now on narcotics for air hunger and palliative care. Recently discharged 05/15/2024 for acute COPD exacerbation. Now presents with acute
worsening of shortness of breath, right-sided chest discomfort. Found to have possible right lower lobe pneumonia on chest x-ray. We are asked to help from pulmonary standpoint 05/19/2024
Acute hypoxic respiratory insufficiency
Saturation in the 70s on 4.5 L
88% on 6 L
Right lower lobe pneumonia, nosocomial
Right-sided chest discomfort
Recent hospital stay, discharged 05/15 for COPD exacerbation
FTT
Pulmonary cachexia
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
Multiple hospital stays over the past 8 months
COPD/emphysema, history of frequent exacerbations/chronic prednisone use
Follows with Dr Harris, last seen 02/03/22
On budesonide and DuoNebs
Chronic O2 use 4.5 L
Last PFT 2018- FEV1 0.97L 41%, DLCO 7%-- no further tests are attempted as she cannot perform them
RUL spiculated nodule--discussed with patient/daughter, no further w/u as she would not be amenable for treatment
Hx of Falls
Chronic alcohol abuse
Polycythemia
Chronic gastritis/NSAID use
Kyphoscoliosis�
Idiopathic progressive polyneuropathy
Current moderate episode of major depressive disorder without prior episode
Diverticulosis
Chronic diarrhea with hypokalemia
Former smoker
Questionable ongoing few cigarettes a day
Plan/recommendations
At this time, patient appears in mild distress. Appears that the right chest discomfort is primary issue
Chest exam with few rhonchi and crackles, no obvious wheezing
Chest x-ray with right lower lobe process which appears to be new
Baseline oxygen at home 4 to 5 L.
Found to be saturation in the 70s at home
88% on 6 L in the ED
Moving forward
Continue with empiric antibiotics for hospital-acquired pneumonia. Recent hospital stay noted
Presently is on ceftriaxone/doxycycline
Received 1 dose of cefepime and vancomycin in the ER
May need to modify antibiotics based on recent hospital stay and risk for gram-negative organisms
Doubt acute COPD exacerbation. Patient discharged on 40 mg of prednisone.
For now we will continue Decadron, decrease to 4 mg every 12 hours
Of note, she had been on antibiotics recently ciprofloxacin changed to cefepime during prior hospital stay
Primary complaint is right-sided chest discomfort
Patient is requesting morphine
Would continue with morphine as needed for now
Unfortunately, severe underlying lung disease precludes aggressive narcotic therapy at this time
Patient is on palliative care
May need to consider transition to hospice. This was reviewed with patient
She was in conversations with her family regarding transition to assisted living
She is agreeable to hospice discussion. Hospice has been consulted at patient request
Continue DuoNebs QID + budesonide BID
Patient is DNR
Reviewed with patient, primary service and case management/hospice nurse
Will follow-up
[2024-05-19] MEDS: WELLBUTRIN XL (24 hour extended release) 450 MG PO (13:50)
--- NOTE | 2024-05-19 15:30 | CM ---
Met with patient briefly at bedside; requested that CM come back tomorrow when her sister is here
Agreed to speak with hospice tomorrow; animal control licensing worker roaster supervisor notified via [employer]
[2024-05-20] VITALS (9 sets, daily range): BP systolic 109–140; BP diastolic 62–90; PULSE 106–132; O2SAT 86
[2024-05-20] MEDS: DECADRON 4 MG IV ×3 (03:19→20:55)
[2024-05-20] MEDS: PULMICORT 0.25 MG INH ×2 (07:23→20:16)
[2024-05-20] MEDS: DUONEB 3 ML INH ×3 (07:24→20:16)
[2024-05-20] MEDS: MORPHINE SULFATE 0.5 MG IV ×2 (09:02→16:43)
[2024-05-20] MEDS: VIBRAMYCIN 100 MG PO ×2 (09:26→20:58)
[2024-05-20] MEDS: PROTONIX 40 MG PO (09:27)
[2024-05-20] MEDS: WELLBUTRIN XL (24 hour extended release) 450 MG PO (09:27)
[2024-05-20] MEDS: STERILE WATER FOR INJECTION 10 ML IV (09:27)
[2024-05-20] MEDS: ABILIFY 5 MG PO (09:28)
[2024-05-20] MEDS: HEPARIN 5000 UNITS SC ×2 (09:28→20:58)
[2024-05-20] MEDS: ROCEPHIN 1000 MG IV (09:28)
[2024-05-20] MEDS: NEURONTIN 600 MG PO ×3 (09:28→22:14)
--- NOTE | 2024-05-20 09:44 | W.PN.HOSP.TC ---
Addendum entered and electronically signed by Ashanti Coates MD 05/20/24 18:44:
Patient requesting for regular diet given she now has her denture. Regular diet ordered per patient request
Original Note:
Today's Communication/Plan
-
see A/P
Assessment / Plan
Assessment / Plan
HPI: 73y F with PMH significant for severe COPD on chronic home O2 who p/w SOB.
Patient was recently admitted 05/10 - 05/15 for similar presentation and treated at that time with IV steroids, nebs, etc. She states that she was feeling improved at the time of discharge. Shortly after her return home she developed a sore throat.
She has some intermittent, non-productive chronic cough - but denies any changes.
In the evening, patient noted some discomfort in the R shoulder area that did not improve with her Roxanol dosing. She denies any recent injury or trauma or other evident cause of this discomfort.
She states that she then became unable to catch her breath due to the continued pain.
She called EMS and was brought to the ED for further evaluation and treatment.
A/P:
# Community acquired Pneumonia
# COPD with Acute Exacerbation secondary to the above
# Chronic Hypoxemic Respiratory Failure
Cont O2 support at 4L NC, she is on 4.5 L O2 at home,
New leukocytosis - not likely entirely due to steroids - and CXR noted Mild bibasilar pneumonia.
Cont Abx with ceftriaxone and doxycycline.
blood culture negative, check MRSA screen
Cont supportive care including nebs ATC and PRN.
Resume IV steroids for now. Decadron 4 IV Q8H
Pulmonary on board.
# Hyponatremia Likely excess ADH due to underlying pulmonary disease.
Lift fluid restriction with hospice eval.
Follow for improvement.
# Peripheral Neuropathy, Stable.
Continue gabapentin.
# Anxiety / Depression, Stable.
Continue home regimen.
# Palliative Care
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
Continue morphine as needed for pain / anxiety / air hunger.
GOC discussed with pt by Pulm and by myself. Pt would like hospice eval. Hospice CS placed.
# Acute urinary retention
cont bladder scan and straight cath PRN
# Diet mince and moist per SPL due to lack of dentures
DVT Prophylaxis: Lovenox
Code Status: DNR
Anticipated Discharge: 24 - 48 hours
Subjective/Interval History
-
Date of Service: May 20, 2024
Objective Data
-
Vital Signs:
Vital Signs
Temp Pulse Resp BP Pulse Ox
37.1 C 99 18 110/70 92
05/20/24 07:17 05/20/24 07:24 05/20/24 07:24 05/20/24 07:17 05/20/24 07:24
I&O
05/19/24 05/20/24 05/21/24
06:59 06:59 06:59
Intake Total 1200 / 1200
Output Total 2100 / 2100
Balance -900 / -900
Review of Systems
-
Respiratory: Reports Pleurisy (R sided chest pain has much resolved )
Physical Exam
-
General: Well Developed, Comfortable, Respiratory Distress (chronic), Conversant and Appears Chronically Ill
HEENT: Normocephalic, Atraumatic and Oxygen (4L NC)
Respiratory: Clear to Auscultation and Non Labored Respirations; Negative Wheezes or Accessory Resp Muscle Use
Cardiac: Regular Rhythm and S1/S2
GI: Soft and Nontender
Neuro: Awake and Alert
Psych: Calm and Intact Judgement/Insight
Data Reviewed
-
Diagnostic Radiology: Image personally visualized and interpreted and Report Reviewed by me
Labs: Labs Reviewed by me
[2024-05-20] MEDS: ATIVAN 0.5 MG PO ×2 (11:03→20:53)
--- NOTE | 2024-05-20 13:03 | HOSPNOTE ---
Hospice intro completed. Patient stated that she is not yet ready to decide, and shall let us know if anything changes. Contact information left at bedside.
--- NOTE | 2024-05-20 13:09 | W.PN.PUL3 ---
Today's Communication / Plan
-
Continue antibiotics
Transition to oral prednisone
Hospice evaluation, informational. Patient currently on palliative care
Assessment
-
73-year-old woman with advanced COPD, minimal effort dyspnea at baseline, anxiety, on maximal medical therapy, now on narcotics for air hunger and palliative care. Recently discharged 05/15/2024 for acute COPD exacerbation. Now presents with acute
worsening of shortness of breath, right-sided chest discomfort. Found to have possible right lower lobe pneumonia on chest x-ray. We are asked to help from pulmonary standpoint 05/19/2024
Acute hypoxic respiratory insufficiency
Saturation in the 70s on 4.5 L
88% on 6 L
Right lower lobe pneumonia, nosocomial
Right-sided chest discomfort
Recent hospital stay, discharged 05/15 for COPD exacerbation
FTT
Pulmonary cachexia
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
Multiple hospital stays over the past 8 months
COPD/emphysema, history of frequent exacerbations/chronic prednisone use
Follows with Dr Harris, last seen 02/03/22
On budesonide and DuoNebs
Chronic O2 use 4.5 L
Last PFT 2018- FEV1 0.97L 41%, DLCO 7%-- no further tests are attempted as she cannot perform them
RUL spiculated nodule--discussed with patient/daughter, no further w/u as she would not be amenable for treatment
Hx of Falls
Chronic alcohol abuse
Polycythemia
Chronic gastritis/NSAID use
Kyphoscoliosis�
Idiopathic progressive polyneuropathy
Current moderate episode of major depressive disorder without prior episode
Diverticulosis
Chronic diarrhea with hypokalemia
Former smoker
Questionable ongoing few cigarettes a day
Plan/recommendations
At this time, patient appears to be improved objectively and subjectively
Chest exam with few rhonchi and crackles, no obvious wheezing
Right-sided chest discomfort improved
Chest x-ray with right lower lobe process which appears to be new
Baseline oxygen at home 4 to 5 L.
Found to be saturation in the 70s at home
88% on 6 L in the ED
Moving forward
Continue with empiric antibiotics for hospital-acquired pneumonia.
She appears to be responding to antibiotic therapy
Presently is on ceftriaxone/doxycycline
Received 1 dose of cefepime and vancomycin in the ER
Doubt acute COPD exacerbation. Patient discharged on 40 mg of prednisone.
Transition of Decadron to oral prednisone
Of note, she had been on antibiotics recently ciprofloxacin changed to cefepime during prior hospital stay
Primary complaint is right-sided chest discomfort
Seems to be improved overall
Would continue with morphine as needed for now
Unfortunately, severe underlying lung disease precludes aggressive narcotic therapy at this time
Patient is on palliative care
May need to consider transition to hospice. This was reviewed with patient
She was in conversations with her family regarding transition to assisted living
She is agreeable to hospice discussion. Hospice has been consulted at patient request
Plan to meet with family and hospice today. More informational for patient
Continue DuoNebs QID + budesonide BID
Patient is DNR
Disposition efforts
Subjective Data
-
Date of Service:
Date of Service: May 20, 2024
Subjective:
Patient is feeling improved. Productive cough noted, right chest discomfort improved. Feels breathing has improved. Denies abdominal pain, nausea. Appears to be in good spirits
Objective Data
Data Reviewed
Vital Signs / I&O / Oxygen:
Vital Signs
Temp Pulse Resp BP Pulse Ox
98.9 F 111 16 109/62 92
05/20/24 11:32 05/20/24 11:32 05/20/24 11:32 05/20/24 11:32 05/20/24 11:32
Intake and Output
05/19/24 05/20/24 05/21/24
06:59 06:59 06:59
Intake Total 1200 / 1200
Output Total 2100 / 2100
Balance -900 / -900
SaO2 92
Nasal Cannula flow liters per 4
minute
Physical Exam
General: Comfortable and Other (Kyphoscoliosis)
HEENT: Normocephalic and Anicteric
Cardiovascular: S1-S2, Regular Rhythm, Murmur (n) and Rub (n)
Respiratory: Wheeze (n), Crackles (Few right base), Rhonchi (n) and Other (Bronchial breath sounds)
GI: Soft, Non Distended and Non Tender
Neurology: Awake, Alert and No Motor Deficits (Able to sit up without assistance)
Skin: Cyanosis (n) and Rash (n)
Labs/Micro/Reports
Lab Data
05/19/24 08:06
05/19/24 08:06
Microbiology
05/19/24 00:08 Blood/Venous Blood Culture - Preliminary
No Growth in 24 hours- Final report to follow
[2024-05-20] MEDS: FLOMAX 0.4 MG PO (14:39)
--- NOTE | 2024-05-20 15:12 | CM ---
Met with patient and her family at bedside; initial assessment completed
Primary Contact: Michaela garza phone # [phone] (please keep sister in the communication loop per request of patient so she does not have to repeat communications)
Preferred Pharmacy: [facility], [address] [place] [address]
Patient lives alone in an apartment; elevator access in building;
PLOF: patient reported that she needs assistance with ADLs; caregiver once a week to bathe and wash her hair; ambulates with a rollator when she leaves her apartment; does not drive
DME: Continuous Oxygen; Concentrator, Portable tank, [employer]ogen, Nebulizer, Pulse Oximeter (vendor [employer])
SNF utilization history: several ([facility]); last stay end of 2022 @ [facility]
Current with [facility] and Palliative Care
patient service technician pst met with patient earlier today; patient reported she was not ready for Hospice yet
Made the decision to live in an Assisted Living Facility and investigating options in the area
Transportation: used [employer] [facility] in the past; she is able to manage the oxygen; For Payment information, Acute Care should contact Michaela garza, phone # [phone]
Plan: PT evaluated patient today; disposition to be determined. CM will continue to monitor for needs/services
[2024-05-20] MEDS: TYLENOL 650 MG PO (21:08)
[2024-05-21] MEDS: ROXANOL ORAL CONCENTRATE 5 MG PO ×2 (01:06→11:34)
[2024-05-21] MEDS: MELATONIN 3 MG PO ×2 (01:17→20:48)
[2024-05-21 03:34] VITALS: BP 129/85
[2024-05-21 07:00] VITALS: BP 132/86
[2024-05-21] MEDS: DUONEB 3 ML INH ×3 (07:16→20:15)
[2024-05-21] MEDS: PULMICORT 0.25 MG INH ×2 (07:17→20:16)
[2024-05-21] MEDS: NEURONTIN 600 MG PO ×3 (08:31→20:49)
[2024-05-21] MEDS: ABILIFY 5 MG PO (08:31)
[2024-05-21] MEDS: DELTASONE 40 MG PO (08:31)
[2024-05-21] MEDS: STERILE WATER FOR INJECTION 10 ML IV (08:31)
[2024-05-21] MEDS: PROTONIX 40 MG PO (08:31)
[2024-05-21] MEDS: ROCEPHIN 1000 MG IV (08:31)
[2024-05-21] MEDS: FLOMAX 0.4 MG PO (08:31)
[2024-05-21] MEDS: HEPARIN 5000 UNITS SC ×2 (08:32→20:45)
[2024-05-21] MEDS: WELLBUTRIN XL (24 hour extended release) 450 MG PO (08:32)
--- NOTE | 2024-05-21 08:52 | VNURNOTE ---
Chart reviewed. Patient to start services with [facility]. Will continue to monitor hospital course/ discharge plans.
[2024-05-21] MEDS: VIBRAMYCIN 100 MG PO ×2 (09:01→20:47)
[2024-05-21] MEDS: ATIVAN 0.5 MG PO ×2 (09:06→19:10)
[2024-05-21 09:09] LABS: Hematocrit 31.6 % (37.0-47.0); Hemoglobin 10.8 g/dL (12.0-16.0); Mean Corp Hgb Conc. 34.2 g/dL (33.0-37.0); Mean Corpuscular Hgb 29.8 pg (27.0-31.0); Mean Corpuscular Volume 87.3 fL (81.0-99.0); Mean Platelet Volume 9.8 fL (7.4-10.4); Platelet Count 279 10^3/uL (130-400); Red Blood Cell Count 3.62 10^6/uL (4.20-5.40); Red Cell Dist. Width 14.1 % (11.5-14.5); White Blood Cell Count 15.4 10^3/uL (4.8-10.8)
[2024-05-21 09:38] LABS: Blood Urea Nitrogen 23 mg/dl (7-17); Calcium 9.5 mg/dl (8.4-10.2); Carbon Dioxide 32 mmol/L (22-30); Chloride 96 mmol/L (98-107); Estimated Creatinine Clearance 66 ml/min; Glucose 103 mg/dl (70-99); Potassium 4.3 mmol/L (3.5-5.1); Sodium 134 mmol/L (135-145); eGFR > 60.00
[2024-05-21 11:00] VITALS: BP 122/88
--- NOTE | 2024-05-21 11:16 | CM ---
admitting manager reviewed patient's chart and met with patient and patient is alert and oriented, patient reports she uses 4-5 liters of oxygen at home through [employer]. Patient is on Palliative care and although hospice was discussed patient has not
decided on hospice. Patient states that she wants to go to an assisted living, and mentioned [facility], case manager specialist reviewed with patient assisted living as an option and reminded patient that she would be alone in her room and would need to be
able to technical services manager her oxygen by herself. admitting manager reached out to [facility] Peoples to discuss patient and review options.
Plan; Await updates and recommendations from physician for patient.
[2024-05-21 11:41] LABS: % Basophils 0.3 % (0-2); % Immature Granulocytes 0.7 % (0-0.5); % Lymphocytes 2.3 % (20.5-51.1); % Monocytes 4.2 % (1.7-9.3); % Neutrophils 92.5 % (42.2-75.2); Absolute Basophils 0.1 10^3/uL (0-0.2); Absolute Immature Granulocytes 0.1 10^3/uL (0-0.05); Absolute Lymphocytes 0.4 10^3/uL (1.2-3.4); Absolute Monocytes 0.7 10^3/uL (0.1-0.6); Absolute Neutrophils 14.3 10^3/uL (1.4-6.5); Nucleated Red Blood Cells % 0 %
--- NOTE | 2024-05-21 12:29 | W.PN.HOSP.TC ---
Addendum entered and electronically signed by Bob Hanson MD 05/21/24 13:20:
Discussed with patient and sister bedside in detail. Plan for possible SNF
Original Note:
Today's Communication/Plan
-
Start dispo to assisted living
Long-term prognosis guarded
P.o. steroids
Assessment / Plan
Assessment / Plan
HPI: 73y F with PMH significant for severe COPD on chronic home O2 who p/w SOB.
Patient was recently admitted 05/10 - 05/15 for similar presentation and treated at that time with IV steroids, nebs, etc. She states that she was feeling improved at the time of discharge. Shortly after her return home she developed a sore throat.
She has some intermittent, non-productive chronic cough - but denies any changes.
In the evening, patient noted some discomfort in the R shoulder area that did not improve with her Roxanol dosing. She denies any recent injury or trauma or other evident cause of this discomfort.
She states that she then became unable to catch her breath due to the continued pain.
She called EMS and was brought to the ED for further evaluation and treatment.
A/P:
# Community acquired Pneumonia
# COPD with Acute Exacerbation secondary to the above
# Chronic Hypoxemic Respiratory Failure
Cont O2 support at 4L NC, she is on 4.5 L O2 at home,
New leukocytosis - not likely entirely due to steroids - and CXR noted Mild bibasilar pneumonia.
Cont Abx with ceftriaxone and doxycycline.
blood culture negative, check MRSA screen
Cont supportive care including nebs ATC and PRN.
IV steroids transition to p.o. 40 mg prednisone. Taper per pulmonary.
Pulmonary on board.
# Hyponatremia Likely excess ADH due to underlying pulmonary disease.
Sodium improved.
# Peripheral Neuropathy, Stable.
Continue gabapentin.
# Anxiety / Depression, Stable.
Continue home regimen.
# Palliative Care
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
Continue morphine as needed for pain / anxiety / air hunger.
Patient has decided against hospice. Understands poor prognosis.
# Acute urinary retention
cont bladder scan and straight cath PRN
DVT Prophylaxis: Lovenox
Code Status: DNR
Anticipated Discharge: Within 24 hours
Subjective/Interval History
-
Date of Service: May 21, 2024
Remains dyspneic with prolonged conversation
Has decided against hospice
Continue palliative measures
Objective Data
-
Labs:
Laboratory Results
05/21/24
08:12
WBC 15.4 H
Hgb 10.8 L
Hct 31.6 L
Plt Count 279
Sodium 134 L
Potassium 4.3
Chloride 96 L
Carbon Dioxide 32 H
BUN 23 H
Creatinine 0.6
Glucose 103 H
Calcium 9.5
Vital Signs:
Vital Signs
Temp Pulse Resp BP Pulse Ox
98.6 F 98 16 122/88 94
05/21/24 11:00 05/21/24 11:00 05/21/24 11:00 05/21/24 11:00 05/21/24 11:00
I&O
05/20/24 05/21/24 05/22/24
06:59 06:59 06:59
Intake Total 1200 / 1200 720 / 720
Output Total 2100 / 2100 650 / 650
Balance -900 / -900 70 / 70
Physical Exam
-
General: Well Developed, Comfortable, Respiratory Distress (chronic), Conversant and Appears Chronically Ill (Appears older than stated age)
HEENT: Normocephalic, Atraumatic and Oxygen (4L NC)
Respiratory: Clear to Auscultation and Other (Dyspneic with prolonged conversation); Negative Wheezes or Accessory Resp Muscle Use
Cardiac: Regular Rhythm and S1/S2
GI: Soft, Nontender, Nondistended and Normal Bowel Sounds
Neuro: Awake and Alert
Psych: Calm and Intact Judgement/Insight
Data Reviewed
-
Total Time Spent with Patient (in minutes): 55
--- NOTE | 2024-05-21 13:07 | W.PN.PUL3 ---
Today's Communication / Plan
-
Continue antibiotics
Continue nebs
Continue prednisone 40 mg a day, slow taper
Morphine as needed
Disposition efforts
Assessment
-
73-year-old woman with advanced COPD, minimal effort dyspnea at baseline, anxiety, on maximal medical therapy, now on narcotics for air hunger and palliative care. Recently discharged 05/15/2024 for acute COPD exacerbation. Now presents with acute
worsening of shortness of breath, right-sided chest discomfort. Found to have possible right lower lobe pneumonia on chest x-ray. We are asked to help from pulmonary standpoint 05/19/2024
Acute hypoxic respiratory insufficiency
Saturation in the 70s on 4.5 L
88% on 6 L
Right lower lobe pneumonia, nosocomial
Right-sided chest discomfort
Recent hospital stay, discharged 05/15 for COPD exacerbation
FTT
Pulmonary cachexia
Conditions present [employer]:
Multiple hospital stays over the past 8 months
COPD/emphysema, history of frequent exacerbations/chronic prednisone use
Follows with Dr Harris, last seen 02/03/22
On budesonide and DuoNebs
Chronic O2 use 4.5 L
Last PFT 2018- FEV1 0.97L 41%, DLCO 7%-- no further tests are attempted as she cannot perform them
RUL spiculated nodule--discussed with patient/daughter, no further w/u as she would not be amenable for treatment
Hx of Falls
Chronic alcohol abuse
Polycythemia
Chronic gastritis/NSAID use
Kyphoscoliosis�
Idiopathic progressive polyneuropathy
Current moderate episode of major depressive disorder without prior episode
Diverticulosis
Chronic diarrhea with hypokalemia
Former smoker
Questionable ongoing few cigarettes a day
Plan/recommendations
At this time, patient appears to be improved objectively and subjectively
Chest exam has improved
Right-sided chest discomfort improved
Chest x-ray with right lower lobe process which appears to be new
Baseline oxygen at home 4 to 5 L.
Found to be saturation in the 70s at home
88% on 6 L in the ED
Moving forward
Continue with empiric antibiotics for hospital-acquired pneumonia.
She appears to be responding to antibiotic therapy
Presently is on ceftriaxone/doxycycline
Received 1 dose of cefepime and vancomycin in the ER
Doubt acute COPD exacerbation. Patient discharged on 40 mg of prednisone.
Transition of Decadron to oral prednisone
Of note, she had been on antibiotics recently ciprofloxacin changed to cefepime during prior hospital stay
Primary complaint is right-sided chest discomfort
Seems to be improved overall
Would continue with morphine as needed for now
She feels this is helping her
Unfortunately, severe underlying lung disease precludes aggressive narcotic therapy at this time
Patient is on palliative care
Hospice evaluation noted
Patient plans to proceed with rehabilitation and then reassess for assisted living and/for hospice
Continue DuoNebs QID + budesonide BID
Patient is DNR
Disposition efforts
Subjective Data
-
Date of Service:
Date of Service: May 21, 2024
Subjective:
Patient continues to improve objectively and subjectively. Morphine seems to help her shortness of breath. Pain is improved on the right side. Denies hemoptysis.
Objective Data
Data Reviewed
Vital Signs / I&O / Oxygen:
Vital Signs
Temp Pulse Resp BP Pulse Ox
98.6 F 98 16 122/88 94
05/21/24 11:00 05/21/24 11:00 05/21/24 11:00 05/21/24 11:00 05/21/24 11:00
Intake and Output
05/20/24 05/21/24 05/22/24
06:59 06:59 06:59
Intake Total 1200 / 1200 720 / 720
Output Total 2100 / 2100 650 / 650
Balance -900 / -900 70 / 70
SaO2 94
Nasal Cannula flow liters per 4.5
minute
Physical Exam
General: Comfortable and Other (Kyphoscoliosis)
HEENT: Normocephalic and Anicteric
Cardiovascular: S1-S2, Regular Rhythm, Murmur (n) and Rub (n)
Respiratory: Wheeze (n), Crackles (Few right base), Rhonchi (n) and Other (Bronchial breath sounds)
GI: Soft, Non Distended and Non Tender
Neurology: Awake, Alert and No Motor Deficits (Able to sit up without assistance)
Skin: Cyanosis (n) and Rash (n)
Labs/Micro/Reports
Lab Data
05/21/24 08:12
05/21/24 08:12
Microbiology
05/19/24 00:08 Blood/Venous Blood Culture - Preliminary
No Growth in 48 hours- Final report to follow
05/19/24 13:33 Nose MRSA Screen - Final
Staph aureus MRSA
[2024-05-21] MEDS: TYLENOL 650 MG PO ×2 (13:49→19:10)
--- NOTE | 2024-05-21 14:08 | PN.CDI ---
CDI
- -
CDI:
Physician Documentation Request
Admit Date: 05/19/24 02:33
Dear Doctor Margie,
Clinical Indicators:
Patient admitted with Community Acquired Pneumonia.
05/18 ED Report, 'She was reportedly hypoxic to the 70s for EMS on their arrival with increased work of breathing and significant tachypnea...On arrival; pulse ox 88% on 6 L nasal cannula'
05/19 Pulmonary Consult, Physical Exam: (Mild use of accessory muscles with conversation)
05/21, 'Chronic Hypoxemic Respiratory Failure Cont O2 support at 4L NC, she is on 4.5 L O2 at home...'
Please clarify which of the following accurately represents the patient's respiratory status:
Acute on chronic respiratory failure
Chronic respiratory failure only
Other, please specify
Additional information for Respiratory Failure:
Recognized criteria for Respiratory Failure (Source: [employer] Hospitalist Aug 2013)
ABGs: (1 or more) Symptoms Please indicate type if known
1. p)2 <60 or RA SPO2 <91% on RA 1. Tachypnea, SOB, dyspnea Hypoxic
2. pCO2 50 and pH <7.35 2. Use of accessory muscles Hypercapnic
3. pO2 decrease of pCO2 increase by 3. Pallor or cyanosis Hypoxic and Hypercapnic
10 mmHg from baseline if known 4. Anxiety or restlessness Unable to determine
5. Unable to speak in full sentences
Supplemental O2 of > 40% (5LPM) Intubation is not required
Use of terms such as suspected, likely, concern for, or probable (associated with a specific diagnosis that is being evaluated, monitored, or treated as if it exists) are acceptable and can be coded in the inpatient setting, when documented at the
time of discharge.
Thank you,
Alicia Sotomayor RN BSN
CDI Specialist
available via tiger text
Please use your independent medical judgment in providing your response.
--- NOTE | 2024-05-21 14:19 | PN.CDI ---
CDI
- -
CDI:
Physician Documentation Request
Admit Date: 05/19/24 02:33
Dear Doctor Rubens,
Clinical Indicators:
Patient admitted with Community Acquired Pneumonia. PMH includes COPD on prednisone.
05/19 H & P, 'New leukocytosis - not likely entirely due to steroids - and new R base infiltrate on CXR and exam.'
WBC on admission:
05/18/24 05/19/24 05/21/24
21:44 08:06 08:12
WBC 23.8 H 20.8 H 15.4 H
HR trend on admission:
05/18/24
21:42 05/18/24
23:00 05/19/24
00:00
Pulse 125 108 100
05/19/24
01:00 05/19/24
01:30
Pulse 93 106
Please clarify which of the following most accurately describes the status of the patient's infection:
Sepsis, POA
- Systemic manifestations of infection, with 2 or more SIRS criteria which include:
- Fever >100.4 degrees F or hypothermia < 96.8 degrees F
- Leukocytosis - WBC > 12,000 or leukopenia - WBC < 4,000 or > 10% bands
- Tachycardia > 90 beats per minute
- Tachypnea - RR > 20 breaths per minute or PaCO2 , 32mmHg
Source: Merck Manual 2013
- Indicate the known or suspected organism
Pneumonia Only, Without Systemic Illness
- Indicate the known or suspected organism
Other, please specify
Use of terms such as suspected, likely, concern for, or probable (associated with a specific diagnosis that is being evaluated, monitored, or treated as if it exists) are acceptable and can be coded in the inpatient setting, when documented at the
time of discharge.
Thank you,
Alicia Sotomayor RN BSN
CDI Specialist
available via tiger text
Please use your independent medical judgment in providing your response.
[2024-05-21 15:00] VITALS: BP 137/76
[2024-05-21 19:30] VITALS: BP 128/76
[2024-05-21 23:00] VITALS: BP 152/90
[2024-05-22 03:00] VITALS: BP 124/81; BP 135/89
[2024-05-22] MEDS: PULMICORT 0.25 MG INH ×2 (07:19→22:01)
[2024-05-22] MEDS: DUONEB 3 ML INH ×3 (07:19→22:00)
--- NOTE | 2024-05-22 08:45 | PTCARENOTE ---
grease refining supervisor alarmed for tachycardia 140 bpm. Entered patient's room and patient with repeated coughing. Patient verbalizes a small piece of egg 'got stuck' while she was eating breakfast. POX 80% on 5 L and heart rate 130-140 bpm while patient
coughing on and off. Suction set up made available bedside, but not needed at this time. Once coughing slowed and patient able to take small sips of water POX returned to 94-95% and heart rate 120 bpm. Lung sounds clear, but diminished throughout.
Patient verbalizes that food occasionally gets stuck while eating at home, as well. Dr. Hanson notified and speech therapist requested for bedside eval. NPO maintained at this time.
--- NOTE | 2024-05-22 09:15 | CM ---
hair or beauty salon manager spoke with admissions at [facility] and bed is available today for patient mental health case manager reached out to physician to make him aware.
Plan; Skilled placement.
[2024-05-22 11:04] VITALS: BP 122/79
[2024-05-22] MEDS: ROCEPHIN 1000 MG IV (11:08)
[2024-05-22] MEDS: STERILE WATER FOR INJECTION 10 ML IV (11:09)
[2024-05-22] MEDS: FLUSH (NSS) 2 FLUSH IV (11:10)
[2024-05-22] MEDS: NEURONTIN 600 MG PO ×3 (11:15→21:03)
[2024-05-22] MEDS: WELLBUTRIN XL (24 hour extended release) 450 MG PO (11:16)
[2024-05-22] MEDS: DELTASONE 40 MG PO (11:17)
[2024-05-22] MEDS: FLOMAX 0.4 MG PO (11:17)
[2024-05-22] MEDS: ABILIFY 5 MG PO (11:19)
[2024-05-22] MEDS: PROTONIX 40 MG PO (11:19)
[2024-05-22] MEDS: HEPARIN 5000 UNITS SC ×2 (11:19→21:03)
[2024-05-22] MEDS: VIBRAMYCIN 100 MG PO ×2 (11:21→21:05)
--- NOTE | 2024-05-22 11:23 | PTOTSP ---
SPEECH THERAPY SWALLOW FOLLOW UP NOTE:
Patient exhibits clinical signs of oropharyngeal dysphagia. Patient with report of choking on Regular texture solids this morning; Was recommended for IDDSI Level 5 Minced and Moist diet following ST evaluation 3 days ago. Now with worsening
respiratory status. Patient is at high risk for aspiration and related complications given severe COPD, tenuous respiratory and pulmonary status. Recommend Videofluoroscopic Swallowing Study to further assess swallow physiology at this time.
Recommend patient to be NPO except for necessary medications crushed in puree and small single sips of water following oral care via ARHP until VSE. Speech therapy to continue to follow.
RECOMMEND:
1) Videofluoroscopic Swallowing Study
2) NPO until VSE
3) medications crushed in puree
4) ARHP - small single sips of water following oral care, with supervision
5) ST to follow
[2024-05-22] MEDS: ATIVAN 0.5 MG PO (11:29)
[2024-05-22] MEDS: MORPHINE SULFATE 0.5 MG IV ×2 (11:30→17:26)
--- NOTE | 2024-05-22 11:52 | W.PN.HOSP.TC ---
Addendum entered and electronically signed by Bob Hanson MD 05/22/24 13:19:
Acute on chronic hypoxic respiratory failure
Sepsis secondary to pneumonia-poa
Original Note:
Today's Communication/Plan
-
VSE
NPO
Cont abx
DC delayed
prognosis guarded
Assessment / Plan
Assessment / Plan
HPI: 73y F with PMH significant for severe COPD on chronic home O2 who p/w SOB.
Patient was recently admitted 05/10 - 05/15 for similar presentation and treated at that time with IV steroids, nebs, etc. She states that she was feeling improved at the time of discharge. Shortly after her return home she developed a sore throat.
She has some intermittent, non-productive chronic cough - but denies any changes.
In the evening, patient noted some discomfort in the R shoulder area that did not improve with her Roxanol dosing. She denies any recent injury or trauma or other evident cause of this discomfort.
She states that she then became unable to catch her breath due to the continued pain.
She called EMS and was brought to the ED for further evaluation and treatment.
A/P:
# Community acquired Pneumonia
# COPD with Acute Exacerbation secondary to the above
# Chronic Hypoxemic Respiratory Failure
Cont O2 support at 4L NC, she is on 4.5 L O2 at home,
New leukocytosis - not likely entirely due to steroids - and CXR noted Mild bibasilar pneumonia.
Cont Abx with ceftriaxone and doxycycline.
blood culture negative, check MRSA screen
Cont supportive care including nebs ATC and PRN.
IV steroids transition to p.o. 40 mg prednisone. Taper per pulmonary.
Pulmonary on board.
#Dysphagia likely 2/2 advanced COPD
-diet downgraded to NPO
-Plan for VSE later today if VSS stable otherwise tomm.
# Hyponatremia Likely excess ADH due to underlying pulmonary disease.
Sodium improved.
# Peripheral Neuropathy, Stable.
Continue gabapentin.
# Anxiety / Depression, Stable.
Continue home regimen.
# Palliative Care
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
Continue morphine as needed for pain / anxiety / air hunger.
Patient has decided against hospice. Understands poor prognosis.
# Acute urinary retention
cont bladder scan and straight cath PRN
DVT Prophylaxis: Lovenox
Code Status: DNR
Anticipated Discharge: > 48 hours
Subjective/Interval History
-
Date of Service: May 22, 2024
pt states piece of egg got stuck leading to coughing fit
Objective Data
-
Vital Signs:
Vital Signs
Temp Pulse Resp BP Pulse Ox
99.0 F 105 28 122/79 95
05/22/24 11:04 05/22/24 11:04 05/22/24 11:04 05/22/24 11:04 05/22/24 11:04
I&O
05/21/24 05/22/24 05/23/24
06:59 06:59 06:59
Intake Total 720 / 720 240 / 240
Output Total 650 / 650 1425 / 1425
Balance 70 / 70 -1185 / -1185
--- NOTE | 2024-05-22 12:17 | W.PN.PUL3 ---
Today's Communication / Plan
-
Await VSE
Remains n.p.o.
No change in pulmonary regimen
Morphine as needed
If requiring morphine more frequently, may need to revisit hospice/comfort
This was reviewed with patient and sister at bedside
Assessment
-
73-year-old woman with advanced COPD, minimal effort dyspnea at baseline, anxiety, on maximal medical therapy, now on narcotics for air hunger and palliative care. Recently discharged 05/15/2024 for acute COPD exacerbation. Now presents with acute
worsening of shortness of breath, right-sided chest discomfort. Found to have possible right lower lobe pneumonia on chest x-ray. We are asked to help from pulmonary standpoint 05/19/2024
Acute hypoxic respiratory insufficiency
Saturation in the 70s on 4.5 L
88% on 6 L
Right lower lobe pneumonia, nosocomial
Right-sided chest discomfort
Recent hospital stay, discharged 05/15 for COPD exacerbation
FTT
Pulmonary cachexia
Aspiration syndrome
Conditions present [employer]IST[employer]:
Multiple hospital stays over the past 8 months
COPD/emphysema, history of frequent exacerbations/chronic prednisone use
Follows with Dr Harris, last seen 02/03/22
On budesonide and DuoNebs
Chronic O2 use 4.5 L
Last PFT 2018- FEV1 0.97L 41%, DLCO 7%-- no further tests are attempted as she cannot perform them
RUL spiculated nodule--discussed with patient/daughter, no further w/u as she would not be amenable for treatment
Hx of Falls
Chronic alcohol abuse
Polycythemia
Chronic gastritis/NSAID use
Kyphoscoliosis�
Idiopathic progressive polyneuropathy
Current moderate episode of major depressive disorder without prior episode
Diverticulosis
Chronic diarrhea with hypokalemia
Former smoker
Questionable ongoing few cigarettes a day
Plan/recommendations
At this time, patient appears to be slightly worse compared to yesterday. Episode of aspiration noted
Happened with scrambled eggs
Patient admits that it took a while for her to recover and she still feeling the effects of aspiration event
Right-sided chest discomfort improved
Chest x-ray with right lower lobe process which appears to be new
Baseline oxygen at home 4 to 5 L.
Presently 99% on 4.5 L
Moving forward
Continue with empiric antibiotics for hospital-acquired pneumonia.
She appears to be responding to antibiotic therapy
Presently is on ceftriaxone/doxycycline
Received 1 dose of cefepime and vancomycin in the ER
Suspect aspiration risk may be predisposing her to her pneumonia
Doubt acute COPD exacerbation. Patient discharged on 40 mg of prednisone.
Transitioned to oral prednisone
Of note, she had been on antibiotics recently ciprofloxacin changed to cefepime during prior hospital stay
Continue with current dosing, no change
Primary complaint is right-sided chest discomfort
Seems to be improved overall
Would continue with morphine as needed for now
She feels this is helping her
Unfortunately, severe underlying lung disease precludes aggressive narcotic therapy at this time
Patient is on palliative care patient states that she will ask for morphine at her rehabilitation but I relayed to her that this may be difficult given her respiratory status.
Will clarify whether eventual disposition includes decision on transition to hospice if she does not respond to rehabilitation as expected. This would be to avoid recurrent hospitalization as it is clear her prognosis is poor long-term and she
understands that if she requires more morphine, comfort/hospice is what her wishes are
Planned VSE noted
Continue DuoNebs QID + budesonide BID
Patient is DNR
Disposition efforts
Reviewed with sister at bedside
Subjective Data
-
Date of Service:
Date of Service: May 22, 2024
Subjective:
Patient with increased shortness of breath today. Had episode of aspiration this morning while eating scrambled eggs. Had increased difficulty breathing at that time. Has not recovered from that. Sister at bedside.
Objective Data
Data Reviewed
Vital Signs / I&O / Oxygen:
Vital Signs
Temp Pulse Resp BP Pulse Ox
99.0 F 105 28 122/79 95
05/22/24 11:04 05/22/24 11:04 05/22/24 11:04 05/22/24 11:04 05/22/24 11:04
Intake and Output
05/21/24 05/22/24 05/23/24
06:59 06:59 06:59
Intake Total 720 / 720 240 / 240
Output Total 650 / 650 1425 / 1425
Balance 70 / 70 -1185 / -1185
SaO2 95
Nasal Cannula flow liters per 5
minute
Physical Exam
General: Comfortable, Other (Kyphoscoliosis) and Other ( dentures)
HEENT: Normocephalic and Anicteric
Cardiovascular: S1-S2, Regular Rhythm, Murmur (n) and Rub (n)
Respiratory: Wheeze (n), Crackles (Few right base), Rhonchi (n), Accessory Resp Muscle Use (Mild use of accessory muscles at rest) and Other (Bronchial breath sounds)
GI: Soft, Non Distended and Non Tender
Neurology: Awake, Alert and No Motor Deficits (Able to sit up without assistance)
Skin: Cyanosis (n) and Rash (n)
Labs/Micro/Reports
Lab Data
05/21/24 08:12
05/21/24 08:12
Microbiology
05/19/24 00:08 Blood/Venous Blood Culture - Preliminary
No Growth in 72 hours- Final report to follow
05/19/24 13:33 Nose MRSA Screen - Final
Staph aureus MRSA
--- NOTE | 2024-05-22 13:25 | CM ---
satellite manager reviewed patient's chart and spoke with patient's physician and patient has not been cleared for discharge today, case repairer reached out to [facility] where patient plans on going when stable and updated them on patient
progress.
Plan; To follow with patient progress and await updated plan for patient.
[2024-05-22] MEDS: TYLENOL 650 MG PO (14:20)
--- NOTE | 2024-05-22 14:39 | PTOTSP ---
SPEECH THERAPY VIDEOFLUOROSCOPIC SWALLOWING STUDY:
Patient exhibits mild oropharyngeal dysphagia, likely chronic related to severe COPD. Patient remains at high risk for aspiration and related complications given tenuous respiratory and pulmonary status. Recommend IDDSI Level 5 Minced and Moist
diet, thin liquids. Medications crushed in puree. Strict aspiration precautions including: Upright positioning; Small single sips; Small bites; Slow rate of intake; Do not eat/drink when short of breath; Take breaks for breathing; Only eat when
awake/alert; Do not eat when coughing; Alternate textures and intersperse liquids; Partial supervision/assistance with meals; Oral care QID and increased mobility as able/tolerated to reduce risk for nosocomial infection; Monitor for signs of
aspiration; D/c oral diet if any decline in respiratory status. Speech therapy to continue to follow at the acute care level for continued education regarding aspiration risks/precautions and recommendations, and assess diet tolerance and modify as
appropriate.
1) IDDSI Level 5 Minced and Moist diet, thin liquids
2) Medications crushed in puree
3) Strict aspiration precautions: Upright positioning; Small single sips; Small bites; Slow rate of intake; Do not eat/drink when short of breath; Take breaks for breathing; Only eat when awake/alert; Do not eat when coughing; Alternate textures and
intersperse liquids; Partial supervision/assistance with meals; Oral care QID and increased mobility as able/tolerated to reduce risk for nosocomial infection; Monitor for signs of aspiration; D/c oral diet if any decline in respiratory status
5) Recommend continued ST for emphasis on safe swallow strategies/aspiration precautions
[2024-05-22 15:00] VITALS: BP 124/81
--- NOTE | 2024-05-22 17:58 | PTCARENOTE ---
Patient currently high-nassar's in bed feeding self dinner tray without incident at this time. Call ahumada in reach and patient verbalizes understanding to ring for needs.
[2024-05-22 19:00] VITALS: BP 119/78
[2024-05-22] MEDS: MELATONIN 3 MG PO (21:03)
[2024-05-22 23:05] VITALS: BP 131/81
[2024-05-23 03:44] VITALS: BP 127/78
[2024-05-23 07:36] VITALS: BP 147/93
[2024-05-23] MEDS: ROCEPHIN 1000 MG IV (07:49)
[2024-05-23] MEDS: PROTONIX 40 MG PO (07:50)
[2024-05-23] MEDS: NEURONTIN 600 MG PO (07:50)
[2024-05-23] MEDS: STERILE WATER FOR INJECTION 10 ML IV (07:50)
[2024-05-23] MEDS: ABILIFY 5 MG PO (07:50)
[2024-05-23] MEDS: FLOMAX 0.4 MG PO (07:50)
[2024-05-23] MEDS: HEPARIN 5000 UNITS SC (07:50)
[2024-05-23] MEDS: DELTASONE 40 MG PO (07:50)
[2024-05-23] MEDS: WELLBUTRIN XL (24 hour extended release) 450 MG PO (07:51)
[2024-05-23] MEDS: VIBRAMYCIN 100 MG PO (07:52)
[2024-05-23] MEDS: DUONEB 3 ML INH ×2 (07:53→14:08)
[2024-05-23] MEDS: PULMICORT 0.25 MG INH (07:53)
[2024-05-23] MEDS: ATIVAN 0.5 MG PO (08:40)
--- NOTE | 2024-05-23 08:45 | W.PN.PUL3 ---
Today's Communication / Plan
-
Continue antibiotics through 05/26, can transition to oral
Pain control
Chronic prednisone therapy
Aspiration precautions
Eventual disposition to rehabilitation
We will sign off. Please call with questions
Assessment
-
73-year-old woman with advanced COPD, minimal effort dyspnea at baseline, anxiety, on maximal medical therapy, now on narcotics for air hunger and palliative care. Recently discharged 05/15/2024 for acute COPD exacerbation. Now presents with acute
worsening of shortness of breath, right-sided chest discomfort. Found to have possible right lower lobe pneumonia on chest x-ray. We are asked to help from pulmonary standpoint 05/19/2024
Acute hypoxic respiratory insufficiency
Saturation in the 70s on 4.5 L
88% on 6 L
Right lower lobe pneumonia, nosocomial
Right-sided chest discomfort
Recent hospital stay, discharged 05/15 for COPD exacerbation
FTT
Pulmonary cachexia
Aspiration syndrome
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
Multiple hospital stays over the past 8 months
COPD/emphysema, history of frequent exacerbations/chronic prednisone use
Follows with Dr Harris, last seen 02/03/22
On budesonide and DuoNebs
Chronic O2 use 4.5 L
Last PFT 2018- FEV1 0.97L 41%, DLCO 7%-- no further tests are attempted as she cannot perform them
RUL spiculated nodule--discussed with patient/daughter, no further w/u as she would not be amenable for treatment
Hx of Falls
Chronic alcohol abuse
Polycythemia
Chronic gastritis/NSAID use
Kyphoscoliosis�
Idiopathic progressive polyneuropathy
Current moderate episode of major depressive disorder without prior episode
Diverticulosis
Chronic diarrhea with hypokalemia
Former smoker
Questionable ongoing few cigarettes a day
Plan/recommendations
At this time, patient appears to be improved objectively and subjectively
She is now eating pur�ed foods
Right-sided chest discomfort improved
Chest x-ray with right lower lobe process which appears to be new
Baseline oxygen at home 4 to 5 L.
Presently 99% on 4.5 L
Swallow evaluation confirms aspiration risk
Moving forward
Continue with empiric antibiotics for hospital-acquired pneumonia.
She appears to be responding to antibiotic therapy
Presently is on ceftriaxone/doxycycline
Received 1 dose of cefepime and vancomycin in the ER
Suspect aspiration risk may be predisposing her to her pneumonia
Doubt acute COPD exacerbation. Patient discharged on 40 mg of prednisone.
Transitioned to oral prednisone
Of note, she had been on antibiotics recently ciprofloxacin changed to cefepime during prior hospital stay
Continue with ceftriaxone/doxycycline, would consider discontinuing 05/26, 7-day course
Leukocytosis noted, improving
Primary complaint is right-sided chest discomfort, improved
Would continue with morphine as needed for now
She feels this is helping her
Unfortunately, severe underlying lung disease precludes aggressive narcotic therapy at this time
Patient is on palliative care patient states that she will ask for morphine at her rehabilitation but I relayed to her that this may be difficult given her respiratory status.
Will clarify whether eventual disposition includes decision on transition to hospice if she does not respond to rehabilitation as expected. This would be to avoid recurrent hospitalization as it is clear her prognosis is poor long-term and she
understands that if she requires more morphine, comfort/hospice is what her wishes are
Planned VSE noted
Continue DuoNebs QID + budesonide BID
Patient is DNR
Disposition efforts
We will sign off. Please call with questions
Subjective Data
-
Date of Service:
Date of Service: May 23, 2024
Subjective:
Patient is sitting in chair, feeling better, eating lunch. She is eating pur�ed food. Moderate chest pain and shortness of breath have improved. Denies hemoptysis, nausea, abdominal pain
Objective Data
Data Reviewed
Vital Signs / I&O / Oxygen:
Vital Signs
Temp Pulse Resp BP Pulse Ox
97.4 F 90 16 147/93 95
05/23/24 07:36 05/23/24 07:57 05/23/24 07:57 05/23/24 07:36 05/23/24 07:57
Intake and Output
05/22/24 05/23/24 05/24/24
06:59 06:59 06:59
Intake Total 240 / 240 240 / 240
Output Total 1425 / 1425 2770 / 2770
Balance -1185 / -1185 -2530 / -2530
SaO2 95
Nasal Cannula flow liters per 5
minute
Physical Exam
General: Comfortable, Other (Kyphoscoliosis) and Other ( dentures)
HEENT: Normocephalic and Anicteric
Cardiovascular: S1-S2, Regular Rhythm, Murmur (n) and Rub (n)
Respiratory: Wheeze (n), Crackles (Few right base), Rhonchi (n), Accessory Resp Muscle Use (Mild use of accessory muscles at rest) and Other (Bronchial breath sounds)
GI: Soft, Non Distended and Non Tender
Neurology: Awake, Alert and No Motor Deficits (Able to sit up without assistance)
Skin: Cyanosis (n) and Rash (n)
Labs/Micro/Reports
Lab Data
05/21/24 08:12
05/21/24 08:12
Microbiology
05/19/24 00:08 Blood/Venous Blood Culture - Preliminary
No Growth in 4 days- Final report to follow
05/19/24 13:33 Nose MRSA Screen - Final
Staph aureus MRSA
[2024-05-23 09:06] VITALS: BP 113/78
[2024-05-23] MEDS: ROXANOL ORAL CONCENTRATE 5 MG PO (09:44)
--- NOTE | 2024-05-23 11:39 | W.PN.HOSP.TC ---
Today's Communication/Plan
-
await placement
cont abx
prednisone
modified diet
poor prognosis
Assessment / Plan
Assessment / Plan
HPI: 73y F with PMH significant for severe COPD on chronic home O2 who p/w SOB.
Patient was recently admitted 05/10 - 05/15 for similar presentation and treated at that time with IV steroids, nebs, etc. She states that she was feeling improved at the time of discharge. Shortly after her return home she developed a sore throat.
She has some intermittent, non-productive chronic cough - but denies any changes.
In the evening, patient noted some discomfort in the R shoulder area that did not improve with her Roxanol dosing. She denies any recent injury or trauma or other evident cause of this discomfort.
She states that she then became unable to catch her breath due to the continued pain.
She called EMS and was brought to the ED for further evaluation and treatment.
A/P:
# Acute on chronic hypoxic respiratory failure
# Sepsis secondary to pneumonia-poa
# COPD with Acute Exacerbation secondary to the above
Cont O2 support at 4L NC, she is on 4.5 L O2 at home,
New leukocytosis - not likely entirely due to steroids - and CXR noted Mild bibasilar pneumonia.
Cont Abx with ceftriaxone and doxycycline.
blood culture negative, check MRSA screen
Cont supportive care including nebs ATC and PRN.
IV steroids transition to p.o. 40 mg prednisone. Taper per pulmonary.
Pulmonary on board.
#Dysphagia likely 2/2 advanced COPD
-s/p VSE now on IDD5
# Hyponatremia Likely excess ADH due to underlying pulmonary disease.
Sodium improved.
# Peripheral Neuropathy, Stable.
Continue gabapentin.
# Anxiety / Depression, Stable.
Continue home regimen.
# Palliative Care
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
Continue morphine as needed for pain / anxiety / air hunger.
Patient has decided against hospice. Understands poor prognosis.
# Acute urinary retention
cont bladder scan and straight cath PRN
DVT Prophylaxis: Lovenox
Code Status: DNR
PT/OT-SNF. CM Aware. Encourage pt to work with PT.
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 Refused hospice.
Anticipated Discharge: Today
Subjective/Interval History
-
Date of Service: May 23, 2024
sitting in chair
eating slowly-soft food
some pleuritic R anterior pain
Objective Data
-
Vital Signs:
Vital Signs
Temp Pulse Resp BP Pulse Ox
97.4 F 90 16 147/93 95
05/23/24 07:36 05/23/24 07:57 05/23/24 07:57 05/23/24 07:36 05/23/24 09:34
I&O
05/22/24 05/23/24 05/24/24
06:59 06:59 06:59
Intake Total 240 / 240 240 / 240
Output Total 1425 / 1425 2770 / 2770
Balance -1185 / -1185 -2530 / -2530
Physical Exam
-
General: Respiratory Distress (chronic), Conversant and Appears Chronically Ill (Appears older than stated age)
HEENT: Normocephalic, Atraumatic and Oxygen (4L NC)
Respiratory: Other (Dyspneic with prolonged conversation); Negative Wheezes or Accessory Resp Muscle Use
Cardiac: Regular Rhythm and S1/S2
GI: Soft, Nontender, Nondistended and Normal Bowel Sounds
Neuro: Awake and Alert
Psych: Calm and Intact Judgement/Insight
[2024-05-23 11:41] VITALS: BP 120/74
[2024-05-23 12:26] VITALS: PULSE 125; PULSE 136; O2SAT 93
--- NOTE | 2024-05-23 13:23 | W.[place]-PDMP ---
[place]-PD[place]
-
Checked the [place]- Prescription Drug Monitoring Program website, no red flags identified; safe to proceed with prescription.
--- NOTE | 2024-05-23 13:24 | W.DCSUMMARY ---
Discharge Summary
Discharge Data
Date of Admission: 05/19/24
Date of Discharge: 05/23/24
-
Pending Results: No
Hospital Course
73 yo woman with hx severe COPD on chronic home O2 and enrolled with palliative care at home, peripheral neuropathy, GERD, anxiety, recurrent UTI who presents to the ER with shortness of breath. Patient was found to have a new onset of pneumonia
and was started on antibiotics of ceftriaxone and doxycycline. Patient with acute on chronic hypoxic respiratory failure and oxygen was slowly able to be weaned down to baseline. Pulmonary was consulted. Blood cultures were negative. Patient was
started on nebulizing treatment. Patient was started on IV steroids which was transitioned to p.o. slow taper steroids. Antibiotics were transitioned to oral on discharge. Patient was also found to have dysphagia and underwent video swallow
evaluation test. Per speech patient diet downgraded to IDDS5 . Hospice was consulted and patient refused and decided against it. Patient says she will continue with palliative measures. Patient understands her poor prognosis which was stated to
her by multiple physician. Patient was eval by PT and OT and be discharged to group home facility. Recommended patient to continue with the palliative measures with Dr. Sophie Meyer as outpatient due to severe COPD and chronic severe dyspnea.
Discharge Plan
-
Patient Disposition: [facility]
Discharge Diagnosis/Procedures: Acute on chronic hypoxic respiratory failure
Sepsis secondary to pneumonia
Dysphagia
Hyponatremia
Condition: Fair
Diet: Other diet
Additional Diets: 1) IDDSI Level 5 Minced and Moist diet, thin liquids
2) Medications crushed in puree
3) Strict aspiration precautions: Upright positioning; Small single sips; Small bites; Slow rate of intake; Do not eat/drink when short of breath; Take breaks for breathing; Only eat when awake/alert; Do not eat when coughing; Alternate textures and
intersperse liquids; Partial supervision/assistance with meals; Oral care QID and increased mobility as able/tolerated to reduce risk for nosocomial infection; Monitor for signs of aspiration; D/c oral diet if any decline in respiratory status
5) Recommend continued ST for emphasis on safe swallow strategies/aspiration precautions
Activity: With assistance and As tolerated
Driving Restrictions: Not until seen by your Dr
Other Services: ST
Referrals:
Live Hernandez MD [Active] - in two to three weeks
Yo Lugo DO [Family Provider] -
Prescriptions:
New
prednisone 10 mg Tablet
See Rx Instructions .ROUTE .COMPLEX Qty: 45 0RF
Rx Instructions:
Take By Mouth:
50 mg daily x3 days, 40 mg daily x3 days,
30 mg daily x3 days, 20 mg daily x3 days,
10 mg daily until seen by PCP/Pulmonary
cefdinir 300 mg capsule
300 mg PO Q12H Qty: 7 0RF
doxycycline hyclate 100 mg capsule
100 mg PO BID Qty: 7 0RF
Continued
bupropion HCl 150 MG tablet extended release 24 hr
450 mg PO DAILY
omeprazole 40 mg capsule,delayed release(DR/EC)
40 mg PO DAILY
budesonide 0.25 MG/2 ML suspension for nebulization
0.25 mg inhalation R DAILY
ipratropium-albuterol 0.5 mg-3 mg(2.5 mg base)/3 mL Solution For Nebulization
3 ml INHALATION R Q8HPRN PRN (Reason: sob)
phenazopyridine 200 mg Tablet
200 mg PO TIDPRN PRN (Reason: uti)
diphenoxylate-atropine 2.5-0.025 mg Tablet
1 tab PO DAILYPRN PRN (Reason: diarrhea)
methenamine hippurate 1 gram Tablet
1 g PO DAILYPRN PRN (Reason: uti)
rwibfjszie-vgukgmuibvrud-jgol 50-325-40 mg Capsule
1 cap PO Q6HPRN PRN (Reason: mirgraines)
aripiprazole [Abilify] 5 mg Tablet
5 mg PO DAILY
gabapentin 300 mg Capsule
600 mg PO TID Qty: 180 0RF
morphine concentrate 100 mg/5 mL (20 mg/mL) Solution
5 mg PO Q8HPRN PRN (Reason: severe pain, dyspnea) 3 Days Qty: 15 0RF
Rx Instructions:
5mg or 0.25mL every 8 hours as needed
lorazepam [Ativan] 0.5 MG tablet
0.5 mg PO TIDPRN PRN (Reason: anxiety) 3 Days Qty: 9 0RF
oxycodone 5 mg Tablet
5 mg PO BIDPRN PRN (Reason: severe pain) Qty: 6 0RF
Held
azithromycin 250 mg Tablet
250 mg PO MOWEFR
Hold Instructions: Resume on 05/28/24.
Discontinued
prednisone 10 mg tablet
10 mg PO DAILY Qty: 90 0RF
Rx Instructions:
Take 4 tabs (40mg) x 4 days; 3 tabs (30mg) x 5 days; 2 tabs(20mg) x 5 days then 1 tab(10mg) daily until further directed
Discharge Orders:
Discharge Patient (As Directed); Ordered 05/23/24
Ordered By: Bob Hanson
Discharge Date and Time
Print Language: WELSH
--- NOTE | 2024-05-23 13:36 | CM ---
Per admissions at [facility] there are no beds till Tuesday, but there is a bed at [facility], plan is for patient to transfer to [facility] today and then transfer to [facility] on Tuesday. Patient and sister, Michaela made aware,
and are agreeable to plan.
Plan; Skilled placement at [facility]
Report [phone]
--- NOTE | 2024-05-23 14:23 | PTOTSP ---
Speech Language Pathology
Anticipated discharge this evening. Recommend [employer] service at the next level of care to continue to train safe swallowing strategies and aspiration precautions.
Recommendations remain:
1) IDDSI Level 5 Minced and Moist diet, thin liquids
2) Medications crushed in puree
3) Strict aspiration precautions: Upright positioning; Small single sips; Small bites; Slow rate of intake; Do not eat/drink when short of breath; Take breaks for breathing; Only eat when awake/alert; Do not eat when coughing; Alternate textures and
intersperse liquids; Partial supervision/assistance with meals; Oral care QID and increased mobility as able/tolerated to reduce risk for nosocomial infection; Monitor for signs of aspiration; D/c oral diet if any decline in respiratory status
4) Recommend continued ST at the next level of care for emphasis on safe swallow strategies/aspiration precautions
[2024-05-23 14:51] VITALS: BP 123/77
== END 2024-05-23 17:00 | DRG 871 ==
LOC: 4 WEST ACU 02:33
PROVIDERS: Internal Medicine; ADMITTING PHYSICIAN Hospitalist; ATTENDING PHYSICIAN Hospitalist; CONSULT PHYSICIAN Internal Medicine Critical Care Medicine; EMERGENCY PHYSICIAN Emergency Medicine; FAMILY PHYSICIAN Family Medicine
DX: A41.9 Sepsis, unspecified organism (principal); J18.9 Pneumonia, unspecified organism; J96.21 Acute and chronic respiratory failure with hypoxia; J44.1 Chronic obstructive pulmonary disease with (acute) exacerbation; E87.1 Hypo-osmolality and hyponatremia; R64 Cachexia; R33.8 Other retention of urine; E87.6 Hypokalemia; Z68.20 Body mass index [BMI] 20.0-20.9, adult
CPT/HCPCS: 71045; 74230; 80048; 80053; 82805; 83735; 83880; 84484; 85025; 85027; 87040; 87070; 87147; 87811; 92526; 92610; 92611; 93005; 93971; 94640; 96365; 96375; 97163; 97167; 97530; 97535; 99291

== ENCOUNTER → 2024-08-07 08:46 | Outpatient (REF) | payer MEDICARE, SELFPAY ==
[2024-08-07 16:57] LABS: Urine Albumin Trace (Neg - Trace); Urine Bilirubin Negative (Negative); Urine Character Very Cloudy (Clear); Urine Color Yellow; Urine Glucose Negative (Negative); Urine Ketone Negative (Negative); Urine Leukocyte 2+ (Negative); Urine Nitrite Negative (Negative); Urine Occult Blood 1+ (Negative); Urine Urobilinogen Negative (Neg - 1+)
[2024-08-07 17:20] LABS: Urine Squamous Cell 0-2 /LPF (Few)
[2024-08-07 17:21] LABS: Urine Red Blood Cell 0-2 /HPF (0-2); Urine Triple Phosphate Crystal Present
[2024-08-07 17:22] LABS: Urine Bacteria Many (Negative)
== END ==
LOC: CLAB 08:46
PROVIDERS: ATTENDING PHYSICIAN Nurse Practitioner
DX: N39.0 Urinary tract infection, site not specified (principal)
CPT/HCPCS: 81003; 81015; 87077; 87086